=== PATIENT | male | born 1960 | race Two or more races ===

== ENCOUNTER 2022-12-21 17:19 | Inpatient (IN) | payer OTHER, MEDICARE, MEDICAID ==
[~2022-12-21] VITALS: Ht 177.8 cm; Wt 53.6 kg
[2022-12-21] MEDS ORDERED: SODIUM CHLORIDE 0.9% 1,000 ML IV ONE (18:30)
[2022-12-21 18:49] LABS: Basophils # (auto) 0 10 ^3/uL (0-0.2); Eosinophils # (auto) 0 10 ^3/uL (0-0.8); Red Cell Distribution Width 15.4 % (11.8-14.3)
[2022-12-21 18:51] LABS: Basophils % (auto) 0.3 % (0.0-2.0); Eosinophils % (auto) 0.1 % (0.0-7.0); Hemoglobin 19.2 g/dL (13.5-17.5); Lymphocytes # (auto) 2.5 10 ^3/uL (0.4-5.4); Lymphocytes % (auto) 20.4 % (10.0-50.0); Mean Corpuscular Hemoglobin 28.7 pg (28.0-32.0); Mean Corpuscular Hgb Conc. 31.5 g/dL (32.0-36.0); Mean Corpuscular Volume 91.2 fL (80.0-100.0); Neutrophils # (auto) 8.7 10 ^3/uL (1.6-8.6); Neutrophils % (auto) 71.2 % (37.0-80.0); Nucleated Red Blood Cells % 0.1 %; White Blood Cell 12.2 10^3/uL (4.4-10.8)
[2022-12-21 18:53] LABS: Albumin 3.2 g/dL (3.4-5.0); Magnesium 3.2 mg/dL (1.6-2.6); Potassium 4.7 mmol/L (3.5-5.1)
[2022-12-21 18:55] LABS: BUN/Creatinine Ratio 25.7
[2022-12-21 18:57] LABS: Hematocrit 61.1 % (41.0-53.0)
[2022-12-21 19:00] LABS: Lactic Acid w/Reflex 2.2 mmol/L (0.4-2.0)
[2022-12-21 19:02] LABS: Total Protein 7.6 g/dL (6.4-8.2)
[2022-12-21 21:27] LABS: Basophils # (auto) 0 10 ^3/uL (0-0.2); Basophils % (auto) 0.3 % (0.0-2.0); Eosinophils # (auto) 0 10 ^3/uL (0-0.8); Eosinophils % (auto) 0.1 % (0.0-7.0); Lymphocytes # (auto) 1.7 10 ^3/uL (0.4-5.4); Mean Corpuscular Volume 93.7 fL (80.0-100.0); Neutrophils # (auto) 8.1 10 ^3/uL (1.6-8.6)
[2022-12-21 21:29] LABS: Hematocrit 54.2 % (41.0-53.0); Lymphocytes % (auto) 15.7 % (10.0-50.0); Mean Corpuscular Hemoglobin 29.4 pg (28.0-32.0); Mean Corpuscular Hgb Conc. 31.3 g/dL (32.0-36.0); Monocytes # (auto) 0.7 10 ^3/uL (0-1.3); Monocytes % (auto) 6.9 % (0.0-12.0); Nucleated Red Blood Cells % 0.3 %; Red Blood Cells 5.78 10^6/uL (4.5-5.90); Red Cell Distribution Width 15.3 % (11.8-14.3); White Blood Cell 10.5 10^3/uL (4.4-10.8)
[2022-12-21] MEDS ORDERED: ACETAMINOPHEN 325 MG TAB PO PRN (21:45)
[2022-12-21] MEDS ORDERED: ONDANSETRON HCL 4 MG/2 ML VIAL IV PRN (21:45)
[2022-12-21 22:08] LABS: Potassium 4.3 mmol/L (3.5-5.1)
[2022-12-21 22:09] LABS: Albumin 2.7 g/dL (3.4-5.0); BUN/Creatinine Ratio 25.5; Bilirubin, Total 0.8 mg/dL (0.2-1.0); Calcium 9.2 mg/dL (8.5-10.1); Total Protein 7.2 g/dL (6.4-8.2)
[2022-12-21] MEDS ORDERED: D5W/SOD CHL 0.45% 1,000 ML IV SCH (22:30)
[2022-12-21] MEDS ORDERED: LACTATED RINGER'S 1,000 ML IV ONE (22:30)
[2022-12-22 00:55] LABS: Urine Bacteria NONE SEEN /hpf (None Seen); Urine Blood TRACE /uL (Negative); Urine Hyaline Cast FEW /lpf (0 - 2); Urine Mucus FEW (None Seen); Urine Specific Gravity 1.028 (1.001-1.035); Urine WBC 2 /hpf (0 - 3)
[2022-12-22] MEDS ORDERED: SOD CHL 0.45% 1,000 ML IV SCH (01:45)
[2022-12-22 08:06] LABS: Calcium 8.8 mg/dL (8.5-10.1); Potassium 4.6 mmol/L (3.5-5.1)
[2022-12-22] MEDS: ENOXAPARIN SOD 30 MG/0.3 ML SYRINGE SC SCH (10:34)
[2022-12-22] MEDS ORDERED: D5W 5% 1,000 ML IV SCH (15:30)
[2022-12-22] MEDS: D5W 5% 1,000 ML IV SCH (22:45)
[2022-12-22] MEDS ORDERED: DEXTROSE (50%) 50ML SYRG IV PRN (23:00)
[2022-12-23 00:01] LABS: Lactic Acid w/Reflex 2.3 mmol/L (0.4-2.0)
[2022-12-23] MEDS: ACCU-CHEK COMFORT CURVE STRIP VI SCH ×4 (00:30→18:26)
[2022-12-23] MEDS: InsuLIN REG 1unit/0.01ml Soln (100units/ml) SC SCH ×5 (06:00→21:20)
[2022-12-23 06:13] LABS: Basophils # (auto) 0 10 ^3/uL (0-0.2); Basophils % (auto) 0.4 % (0.0-2.0); Eosinophils # (auto) 0.1 10 ^3/uL (0-0.8); Eosinophils % (auto) 1.6 % (0.0-7.0); Hematocrit 47.8 % (41.0-53.0); Hemoglobin 15.5 g/dL (13.5-17.5); Lymphocytes # (auto) 2.2 10 ^3/uL (0.4-5.4); Lymphocytes % (auto) 27.8 % (10.0-50.0); Mean Corpuscular Hemoglobin 29.4 pg (28.0-32.0); Mean Corpuscular Hgb Conc. 32.3 g/dL (32.0-36.0); Mean Corpuscular Volume 91.1 fL (80.0-100.0); Monocytes # (auto) 0.4 10 ^3/uL (0-1.3); Neutrophils # (auto) 5.1 10 ^3/uL (1.6-8.6); Neutrophils % (auto) 65.2 % (37.0-80.0); Nucleated Red Blood Cells % 0.2 %; Red Blood Cells 5.25 10^6/uL (4.5-5.90); Red Cell Distribution Width 14.9 % (11.8-14.3); White Blood Cell 7.9 10^3/uL (4.4-10.8)
[2022-12-23 06:34] LABS: Albumin 2.4 g/dL (3.4-5.0); Calcium 8.3 mg/dL (8.5-10.1); Magnesium 2.6 mg/dL (1.6-2.6); Potassium 3.6 mmol/L (3.5-5.1)
[2022-12-23 06:39] LABS: BUN/Creatinine Ratio 28.3
[2022-12-23 06:47] LABS: Lactic Acid w/Reflex 2.4 mmol/L (0.4-2.0)
[2022-12-23] MEDS: ENOXAPARIN SOD 30 MG/0.3 ML SYRINGE SC SCH (10:36)
[2022-12-23] MEDS: D5W 5% 1,000 ML IV SCH (18:28)
[2022-12-23 22:00] VITALS: BP 130/79
[2022-12-24] MEDS: D5W 5% 1,000 ML IV SCH ×2 (03:21→17:39)
[2022-12-24 05:00] VITALS: BP 109/66
[2022-12-24 05:57] LABS: Potassium 3.4 mmol/L (3.5-5.1)
[2022-12-24] MEDS: ACCU-CHEK COMFORT CURVE STRIP VI SCH ×5 (06:00→23:28)
[2022-12-24] MEDS: InsuLIN REG 1unit/0.01ml Soln (100units/ml) SC SCH ×5 (06:00→23:28)
[2022-12-24 06:03] LABS: BUN/Creatinine Ratio 26.7; Calcium 8.4 mg/dL (8.5-10.1)
[2022-12-24] MEDS: ENOXAPARIN SOD 30 MG/0.3 ML SYRINGE SC SCH (09:43)
[2022-12-24 13:00] VITALS: BP 107/67
[2022-12-24] MEDS: POTASSIUM CHL 20MEQ/100ML 100 ML IV SCH ×3 (13:05→16:07)
[2022-12-24 17:00] VITALS: BP 131/87
[2022-12-24] MEDS ORDERED: POTASSIUM CHL 20MEQ/100ML 100 ML IV SCH (19:15)
[2022-12-24 21:53] VITALS: BP 132/75
[2022-12-25 05:00] VITALS: BP 148/96
[2022-12-25] MEDS: InsuLIN REG 1unit/0.01ml Soln (100units/ml) SC SCH ×3 (06:00→17:40)
[2022-12-25] MEDS: ACCU-CHEK COMFORT CURVE STRIP VI SCH ×3 (06:24→17:40)
[2022-12-25 06:45] LABS: BUN/Creatinine Ratio 26.6; Calcium 8.8 mg/dL (8.5-10.1); Potassium 4.2 mmol/L (3.5-5.1)
[2022-12-25] MEDS: D5W 5% 1,000 ML IV SCH ×3 (07:50→22:15)
[2022-12-25 09:00] VITALS: BP 123/76
[2022-12-25] MEDS: ENOXAPARIN SOD 30 MG/0.3 ML SYRINGE SC SCH (10:32)
[2022-12-25 13:00] VITALS: BP 102/65
[2022-12-25 17:00] VITALS: BP 125/76
[2022-12-25 22:00] VITALS: BP 131/77
[2022-12-26 05:00] VITALS: BP 118/75
[2022-12-26] MEDS: InsuLIN REG 1unit/0.01ml Soln (100units/ml) SC SCH ×5 (06:00→23:21)
[2022-12-26] MEDS: ACCU-CHEK COMFORT CURVE STRIP VI SCH ×5 (06:11→23:21)
[2022-12-26 06:45] LABS: Calcium 8.6 mg/dL (8.5-10.1); Potassium 3.8 mmol/L (3.5-5.1)
[2022-12-26 06:48] LABS: BUN/Creatinine Ratio 21.2
[2022-12-26 09:00] VITALS: BP 106/78
[2022-12-26] MEDS: ENOXAPARIN SOD 30 MG/0.3 ML SYRINGE SC SCH (10:04)
[2022-12-26] MEDS: D5W 5% 1,000 ML IV SCH ×2 (12:48→23:14)
[2022-12-26 13:00] VITALS: BP 99/60
[2022-12-26 17:00] VITALS: BP 117/75
[2022-12-26 22:29] VITALS: BP 136/84
[2022-12-27 05:32] VITALS: BP 116/84
[2022-12-27 06:26] LABS: Calcium 8.2 mg/dL (8.5-10.1); Potassium 3.5 mmol/L (3.5-5.1)
[2022-12-27] MEDS: ACCU-CHEK COMFORT CURVE STRIP VI SCH ×3 (06:28→18:00)
[2022-12-27 06:30] LABS: BUN/Creatinine Ratio 18.2
[2022-12-27] MEDS: InsuLIN REG 1unit/0.01ml Soln (100units/ml) SC SCH ×3 (06:39→18:00)
[2022-12-27 08:00] VITALS: BP 127/73
[2022-12-27] MEDS: ENOXAPARIN SOD 30 MG/0.3 ML SYRINGE SC SCH (10:39)
[2022-12-27 12:00] VITALS: BP 139/78
[2022-12-27 16:00] VITALS: BP 130/79
[2022-12-27] MEDS: D5W 5% 1,000 ML IV SCH (18:00)
[2022-12-27 22:00] VITALS: BP 124/73
[2022-12-28 05:00] VITALS: BP 111/71
[2022-12-28] MEDS: D5W 5% 1,000 ML IV SCH ×2 (05:17→21:45)
[2022-12-28] MEDS: ACCU-CHEK COMFORT CURVE STRIP VI SCH ×5 (05:54→23:55)
[2022-12-28] MEDS: InsuLIN REG 1unit/0.01ml Soln (100units/ml) SC SCH ×5 (05:55→23:55)
[2022-12-28 08:40] VITALS: BP 101/45
[2022-12-28] MEDS: ENOXAPARIN SOD 30 MG/0.3 ML SYRINGE SC SCH (09:57)
[2022-12-28 12:30] VITALS: BP 117/69
[2022-12-28 16:25] VITALS: BP 109/73
[2022-12-28 20:00] VITALS: BP 114/65
[2022-12-29] MEDS: ACCU-CHEK COMFORT CURVE STRIP VI SCH ×3 (05:47→18:55)
[2022-12-29] MEDS: InsuLIN REG 1unit/0.01ml Soln (100units/ml) SC SCH ×3 (05:51→18:55)
[2022-12-29 08:35] VITALS: BP 100/77
[2022-12-29] MEDS: ENOXAPARIN SOD 30 MG/0.3 ML SYRINGE SC SCH (10:00)
[2022-12-29 12:30] VITALS: BP 131/82
[2022-12-29] MEDS: D5W 5% 1,000 ML IV SCH (13:54)
[2022-12-29 16:30] VITALS: BP 129/77
[2022-12-29 16:34] LABS: Folate (Folic Acid) 1.73 ng/mL (5.38-24)
[2022-12-29] MEDS ORDERED: ceFAZolin 1GM/50ML 50 ML IV ONE (21:00)
[2022-12-29 22:00] VITALS: BP 123/63
[2022-12-30] MEDS: ACCU-CHEK COMFORT CURVE STRIP VI SCH ×4 (00:28→18:01)
[2022-12-30] MEDS: D5W 5% 1,000 ML IV SCH ×3 (03:12→22:16)
[2022-12-30 05:00] VITALS: BP 95/59
[2022-12-30] MEDS: InsuLIN REG 1unit/0.01ml Soln (100units/ml) SC SCH ×4 (06:00→18:00)
[2022-12-30 06:27] LABS: Potassium 3.3 mmol/L (3.5-5.1)
[2022-12-30 06:34] LABS: Albumin 2.4 g/dL (3.4-5.0); BUN/Creatinine Ratio 9.5; Bilirubin, Total 1.7 mg/dL (0.2-1.0); Calcium 8.5 mg/dL (8.5-10.1); Total Protein 6.7 g/dL (6.4-8.2)
[2022-12-30 06:35] LABS: Basophils # (auto) 0 10 ^3/uL (0-0.2); Basophils % (auto) 0.2 % (0.0-2.0); Eosinophils # (auto) 0 10 ^3/uL (0-0.8); Eosinophils % (auto) 0.1 % (0.0-7.0); Hematocrit 44.6 % (41.0-53.0); Hemoglobin 15.3 g/dL (13.5-17.5); Lymphocytes # (auto) 1.5 10 ^3/uL (0.4-5.4); Lymphocytes % (auto) 15.6 % (10.0-50.0); Mean Corpuscular Hemoglobin 29.4 pg (28.0-32.0); Mean Corpuscular Hgb Conc. 34.4 g/dL (32.0-36.0); Mean Corpuscular Volume 85.3 fL (80.0-100.0); Monocytes # (auto) 0.6 10 ^3/uL (0-1.3); Monocytes % (auto) 5.8 % (0.0-12.0); Neutrophils # (auto) 7.5 10 ^3/uL (1.6-8.6); Neutrophils % (auto) 78.3 % (37.0-80.0); Nucleated Red Blood Cells % 0.3 %; Red Blood Cells 5.22 10^6/uL (4.5-5.90); White Blood Cell 9.6 10^3/uL (4.4-10.8)
[2022-12-30 06:36] LABS: INR 1.1 (0.9-1.15); Partial Thromboplastin Time 38.9 sec (24.6-33.4)
[2022-12-30 09:00] VITALS: BP 109/56
[2022-12-30] MEDS: ENOXAPARIN SOD 30 MG/0.3 ML SYRINGE SC SCH (10:00)
[2022-12-30 13:00] VITALS: BP 109/54
[2022-12-30] MEDS: POTASSIUM CHL 20MEQ/100ML 100 ML IV SCH ×2 (13:36→17:57)
[2022-12-30] MEDS ORDERED: ONDANSETRON HCL 4 MG/2 ML VIAL IV PRN (16:00)
[2022-12-30 17:00] VITALS: BP 85/54
[2022-12-30] MEDS ORDERED: MORPHINE SULFATE INJ 2 MG/ml SYRG IV ONE (17:30)
[2022-12-30 20:00] VITALS: BP 107/69
[2022-12-30 22:00] VITALS: BP 107/69
[2022-12-31] MEDS: ACCU-CHEK COMFORT CURVE STRIP VI SCH ×4 (00:35→18:23)
[2022-12-31 05:00] VITALS: BP 124/70
[2022-12-31] MEDS: ENSURE CLEAR Apple 8oz Carton PO SCH ×3 (06:00→18:32)
[2022-12-31] MEDS: InsuLIN REG 1unit/0.01ml Soln (100units/ml) SC SCH ×4 (06:58→18:24)
[2022-12-31 08:00] VITALS: BP 116/58
[2022-12-31 08:52] VITALS: BP 116/58
[2022-12-31] MEDS: ENOXAPARIN SOD 30 MG/0.3 ML SYRINGE SC SCH (09:49)
[2022-12-31] MEDS: FOLIC ACID 1 MG in D5W 5% 50 ML INJ SCH (11:31)
[2022-12-31 13:00] VITALS: BP 124/67
[2022-12-31 16:51] VITALS: BP 128/62
[2022-12-31] MEDS: Ensure Enlive Strawberry 8oz Bottle PO SCH ×2 (18:00→21:57)
[2022-12-31] MEDS: D5W 5% 1,000 ML IV SCH (21:15)
[2022-12-31 22:00] VITALS: BP 109/54
[2023-01-01] MEDS: ACCU-CHEK COMFORT CURVE STRIP VI SCH ×4 (01:14→17:40)
[2023-01-01] MEDS: ENSURE CLEAR Apple 8oz Carton PO SCH ×3 (01:14→13:05)
[2023-01-01] MEDS: D5W 5% 1,000 ML IV SCH (04:08)
[2023-01-01 05:00] VITALS: BP 116/66
[2023-01-01] MEDS: InsuLIN REG 1unit/0.01ml Soln (100units/ml) SC SCH ×4 (05:23→17:40)
[2023-01-01] MEDS: Ensure Enlive Strawberry 8oz Bottle PO SCH (05:24)
[2023-01-01 08:05] VITALS: BP 94/40
[2023-01-01 09:00] VITALS: BP 103/67
[2023-01-01] MEDS: ENOXAPARIN SOD 30 MG/0.3 ML SYRINGE SC SCH (10:41)
[2023-01-01] MEDS: FOLIC ACID 1 MG in D5W 5% 50 ML INJ SCH (10:58)
[2023-01-01 13:00] VITALS: BP 96/40
[2023-01-01] MEDS: SODIUM CHLORIDE 0.9% 1,000 ML IV SCH ×2 (13:03→21:55)
[2023-01-01 16:55] VITALS: BP 94/57
[2023-01-01] MEDS: ENSURE CLEAR Apple 8oz Carton GT SCH (18:20)
[2023-01-01 22:00] VITALS: BP 120/64
[2023-01-02] MEDS: ACCU-CHEK COMFORT CURVE STRIP VI SCH ×3 (00:17→10:54)
[2023-01-02] MEDS: ENSURE CLEAR Apple 8oz Carton GT SCH ×3 (00:19→12:56)
[2023-01-02 05:00] VITALS: BP 109/62
[2023-01-02] MEDS: SODIUM CHLORIDE 0.9% 1,000 ML IV SCH ×2 (05:35→12:25)
[2023-01-02] MEDS: InsuLIN REG 1unit/0.01ml Soln (100units/ml) SC SCH ×3 (05:36→10:54)
[2023-01-02 09:00] VITALS: BP 106/63
[2023-01-02] MEDS: ENOXAPARIN SOD 30 MG/0.3 ML SYRINGE SC SCH (10:00)
[2023-01-02] MEDS: FOLIC ACID 1 MG in D5W 5% 50 ML INJ SCH (10:54)
[2023-01-02 13:00] VITALS: BP 104/63
== END 2023-01-02 17:27 | disposition hospice, home (50) | DRG 682 ==
LOC: EDBD 17:19 → ER 17:19 → OVERFLOW 21:33 → WEST WING 12-23 17:50 → TELE-WESTW 12-23 18:26
PROVIDERS: ADMIT Nurse Practitioner; ATTEND Family Medicine
PROC: 0DH63UZ Insertion of Feeding Device into Stomach, Percutaneous Approach (ICD-10-PCS; principal; 2022-12-30 15:21)
DX: N17.9 Acute kidney failure, unspecified (principal); E43 Unspecified severe protein-calorie malnutrition; G93.41 Metabolic encephalopathy; E87.0 Hyperosmolality and hypernatremia; E87.20 Acidosis, unspecified; E87.1 Hypo-osmolality and hyponatremia; Z68.1 Body mass index [BMI] 19.9 or less, adult; E86.0 Dehydration; K29.90 Gastroduodenitis, unspecified, without bleeding; E78.5 Hyperlipidemia, unspecified; R62.7 Adult failure to thrive; Z51.5 Encounter for palliative care; E87.6 Hypokalemia; E53.8 Deficiency of other specified B group vitamins; K44.9 Diaphragmatic hernia without obstruction or gangrene; R13.10 Dysphagia, unspecified; E11.9 Type 2 diabetes mellitus without complications; G20 Parkinson's disease; F02.C0 Dementia in other diseases classified elsewhere, severe, without behavioral disturbance, psychotic disturbance, mood disturbance, and anxiety; I25.10 Atherosclerotic heart disease of native coronary artery without angina pectoris; I25.2 Old myocardial infarction; Z95.5 Presence of coronary angioplasty implant and graft; Z93.1 Gastrostomy status
CPT/HCPCS: 36415; 70450; 71045; 80048; 80053; 81001; 82607; 82746; 82962; 83036; 83605; 83735; 84295; 84443; 84484; 85025; 85610; 85730; 87426; 92507; 92610; 93005; 95819; 96360; G0378; J0690; J1815; J3480; J7060

== ENCOUNTER 2023-02-15 18:16 | Inpatient (IN) | payer OTHER, MEDICARE, MEDICAID ==
[~2023-02-15] VITALS: Ht 162.6 cm; Wt 50.5 kg
[2023-02-15 19:17] LABS: Basophils # (auto) 0 10 ^3/uL (0-0.2); Basophils % (auto) 0.4 % (0.0-2.0); Eosinophils # (auto) 0 10 ^3/uL (0-0.8); Eosinophils % (auto) 0.5 % (0.0-7.0); Hematocrit 43.3 % (41.0-53.0); Hemoglobin 14.2 g/dL (13.5-17.5); Lymphocytes # (auto) 2.8 10 ^3/uL (0.4-5.4); Lymphocytes % (auto) 29.3 % (10.0-50.0); Mean Corpuscular Hemoglobin 28.6 pg (28.0-32.0); Mean Corpuscular Hgb Conc. 32.8 g/dL (32.0-36.0); Mean Corpuscular Volume 86.9 fL (80.0-100.0); Monocytes # (auto) 0.5 10 ^3/uL (0-1.3); Neutrophils # (auto) 6.1 10 ^3/uL (1.6-8.6); Neutrophils % (auto) 64.8 % (37.0-80.0); Nucleated Red Blood Cells % 0.2 %; Red Blood Cells 4.97 10^6/uL (4.5-5.90); Red Cell Distribution Width 15.5 % (11.8-14.3); White Blood Cell 9.4 10^3/uL (4.4-10.8)
[2023-02-15 19:37] LABS: Albumin 2.9 g/dL (3.4-5.0); BUN/Creatinine Ratio 41.9 (10.0-20.0); Calcium 8.9 mg/dL (8.5-10.1); Potassium 4.3 mmol/L (3.5-5.1)
[2023-02-15 19:40] LABS: Bilirubin, Total 0.6 mg/dL (0.2-1.0); Total Protein 7.1 g/dL (6.4-8.2)
[2023-02-15 22:27] LABS: Urine Bacteria MANY /hpf (None Seen); Urine Blood 2+ /uL (Negative); Urine Mucus FEW (None Seen); Urine Specific Gravity 1.019 (1.001-1.035); Urine WBC 76 /hpf (0 - 3); Urine WBC Clumps PRESENT /hpf (None Seen)
[2023-02-16] MEDS ORDERED: cefTRIAXone 1GM/50ML D5W 50 ML IV ONE (05:15)
[2023-02-16] MEDS ORDERED: HYDROmorphone HCL 2 MG/ML VL/or syr IV ONE (05:30)
[2023-02-16] MEDS ORDERED: ONDANSETRON HCL 4 MG/2 ML VIAL IV ONE (05:30)
[2023-02-16] MEDS ORDERED: SODIUM CHLORIDE 0.9% 500 ML IV ONE (05:30)
[2023-02-16] MEDS ORDERED: ONDANSETRON HCL 4 MG/2 ML VIAL IV PRN (06:15)
[2023-02-16] MEDS ORDERED: HYDROcodone-ACET 5/325MG TAB PEG PRN (13:15)
[2023-02-16] MEDS: ENOXAPARIN SOD 40 MG/0.4 ML SYRINGE SC SCH (15:51)
[2023-02-16] MEDS: PANTOPRAZOLE 40 MG/10 ML VIAL INJ IV SCH (15:51)
[2023-02-16] MEDS: cefTRIAXone 1GM/50ML D5W 50 ML IV SCH (15:52)
[2023-02-16 16:34] VITALS: BP 120/75
[2023-02-16 17:00] VITALS: BP 120/75
[2023-02-16 22:00] VITALS: BP 125/77
[2023-02-17 05:00] VITALS: BP 103/70
[2023-02-17 05:53] LABS: Basophils # (auto) 0 10 ^3/uL (0-0.2); Basophils % (auto) 0.6 % (0.0-2.0); Eosinophils # (auto) 0.1 10 ^3/uL (0-0.8); Hematocrit 37.1 % (41.0-53.0); Hemoglobin 12.1 g/dL (13.5-17.5); Lymphocytes # (auto) 2.7 10 ^3/uL (0.4-5.4); Lymphocytes % (auto) 31.7 % (10.0-50.0); Mean Corpuscular Hemoglobin 28.4 pg (28.0-32.0); Mean Corpuscular Hgb Conc. 32.6 g/dL (32.0-36.0); Mean Corpuscular Volume 87.2 fL (80.0-100.0); Monocytes # (auto) 0.5 10 ^3/uL (0-1.3); Monocytes % (auto) 6.4 % (0.0-12.0); Neutrophils # (auto) 5.1 10 ^3/uL (1.6-8.6); Neutrophils % (auto) 60.3 % (37.0-80.0); Nucleated Red Blood Cells % 0.4 %; Red Blood Cells 4.26 10^6/uL (4.5-5.90); Red Cell Distribution Width 15.8 % (11.8-14.3); White Blood Cell 8.5 10^3/uL (4.4-10.8)
[2023-02-17 06:12] LABS: Calcium 8.8 mg/dL (8.5-10.1)
[2023-02-17 06:15] LABS: BUN/Creatinine Ratio 43.9 (10.0-20.0)
[2023-02-17] MEDS: PANTOPRAZOLE 40 MG/10 ML VIAL INJ IV SCH (08:34)
[2023-02-17] MEDS: cefTRIAXone 1GM/50ML D5W 50 ML IV SCH (08:34)
[2023-02-17] MEDS: ENOXAPARIN SOD 40 MG/0.4 ML SYRINGE SC SCH (08:34)
[2023-02-17 09:00] VITALS: BP 90/52
[2023-02-17] MEDS ORDERED: Glucerna 1.2 Cal 1Liter BOTTLE GT SCH (12:30)
[2023-02-17 13:00] VITALS: BP 106/51
[2023-02-17 16:51] VITALS: BP 121/67
[2023-02-17] MEDS: ACETAMINOPHEN 325 MG TAB PO PRN (18:28)
[2023-02-17 22:00] VITALS: BP 130/73
[2023-02-18] MEDS: ACETAMINOPHEN 325 MG TAB PO PRN ×2 (04:46→18:01)
[2023-02-18 05:00] VITALS: BP 133/64
[2023-02-18] MEDS: PANTOPRAZOLE 40 MG/10 ML VIAL INJ IV SCH (08:47)
[2023-02-18] MEDS: ENOXAPARIN SOD 40 MG/0.4 ML SYRINGE SC SCH (08:47)
[2023-02-18] MEDS: cefTRIAXone 1GM/50ML D5W 50 ML IV SCH (08:47)
[2023-02-18 09:00] VITALS: BP 96/53
[2023-02-18 12:48] VITALS: BP 98/49
[2023-02-18 17:00] VITALS: BP 102/50
[2023-02-18 22:00] VITALS: BP 106/67
[2023-02-19] MEDS: ACETAMINOPHEN 325 MG TAB PO PRN (00:45)
[2023-02-19 05:00] VITALS: BP 106/75
[2023-02-19 08:41] VITALS: BP 107/75
[2023-02-19 12:56] VITALS: BP 120/69
[2023-02-19 17:00] VITALS: BP 104/47
[2023-02-19] MEDS: cefTRIAXone 1GM/50ML D5W 50 ML IV SCH (18:28)
[2023-02-19] MEDS: PANTOPRAZOLE 40 MG/10 ML VIAL INJ IV SCH (18:28)
[2023-02-19] MEDS: ENOXAPARIN SOD 40 MG/0.4 ML SYRINGE SC SCH (18:28)
[2023-02-19 22:00] VITALS: BP 127/64
[2023-02-20] VITALS: BP 104/64
[2023-02-20 05:00] VITALS: BP 100/70
[2023-02-20 09:04] VITALS: BP 123/51
[2023-02-20 12:30] VITALS: BP 106/67
[2023-02-20] MEDS: ENOXAPARIN SOD 40 MG/0.4 ML SYRINGE SC SCH (12:32)
[2023-02-20] MEDS: cefTRIAXone 1GM/50ML D5W 50 ML IV SCH (12:32)
[2023-02-20] MEDS: PANTOPRAZOLE 40 MG/10 ML VIAL INJ IV SCH (12:32)
[2023-02-20 16:25] VITALS: BP 71/46
== END 2023-02-20 18:42 | disposition home health service (06) | DRG 689 ==
LOC: ER 18:16 → OVERFLOW 02-16 06:20 → WEST WING 02-16 16:35
PROVIDERS: ADMIT Nurse Practitioner; ATTEND Family Medicine
PROC: 05HB33Z Insertion of Infusion Device into Right Basilic Vein, Percutaneous Approach (ICD-10-PCS; principal; 2023-02-20)
PROC: B54MZZA Ultrasonography of Right Upper Extremity Veins, Guidance (ICD-10-PCS; 2023-02-20)
DX: N10 Acute pyelonephritis (principal); E43 Unspecified severe protein-calorie malnutrition; Z68.1 Body mass index [BMI] 19.9 or less, adult; F03.C0 Unspecified dementia, severe, without behavioral disturbance, psychotic disturbance, mood disturbance, and anxiety; E78.00 Pure hypercholesterolemia, unspecified; B96.4 Proteus (mirabilis) (morganii) as the cause of diseases classified elsewhere; E86.0 Dehydration; Z20.822 Contact with and (suspected) exposure to COVID-19; Z74.01 Bed confinement status; Z93.1 Gastrostomy status
CPT/HCPCS: 36415; 74176; 76775; 80048; 80053; 81001; 83605; 85025; 87040; 87086; 87088; 87186; 87426; 93005; 96361; 96374; 96375; C9113; G0378; J0696; J2405

== ENCOUNTER 2023-04-16 22:45 | Inpatient (IN) | payer OTHER, MEDICAID ==
[~2023-04-16] VITALS: Ht 152.4 cm; Wt 41.0 kg
[2023-04-16] MEDS ORDERED: KETAMINE HCL 10 ML ONE (22:56)
[2023-04-16] MEDS ORDERED: ROCURONIUM 10MG/ML 10ML VIAL IV ONE ×2 (22:56→23:15)
[2023-04-16 23:05] VITALS: BP 86/57
[2023-04-16] MEDS ORDERED: KETAMINE 50mg/ML 10ml Vial (500mg/10ml) IV ONE (23:15)
[2023-04-16] MEDS ORDERED: SODIUM CHLORIDE 0.9% 1,550 ML IV ONE (23:15)
[2023-04-16 23:23] LABS: Basophils # (auto) 0 10 ^3/uL (0-0.2); Basophils % (auto) 0.3 % (0.0-2.0); Eosinophils # (auto) 0 10 ^3/uL (0-0.8); Hematocrit 44.4 % (41.0-53.0); Lymphocytes # (auto) 2.1 10 ^3/uL (0.4-5.4); Lymphocytes % (auto) 13.7 % (10.0-50.0); Mean Corpuscular Hemoglobin 27.5 pg (28.0-32.0); Mean Corpuscular Hgb Conc. 31.4 g/dL (32.0-36.0); Mean Corpuscular Volume 87.5 fL (80.0-100.0); Monocytes % (auto) 6.4 % (0.0-12.0); Neutrophils # (auto) 12.1 10 ^3/uL (1.6-8.6); Neutrophils % (auto) 79.6 % (37.0-80.0); Nucleated Red Blood Cells % 0.1 %; Red Blood Cells 5.07 10^6/uL (4.5-5.90); Red Cell Distribution Width 16.9 % (11.8-14.3); White Blood Cell 15.2 10^3/uL (4.4-10.8)
[2023-04-16] MEDS: fentaNYL Drip 2500mCg/250mlNS 250 ML IV SCH (23:39)
[2023-04-16 23:44] LABS: Albumin 2.6 g/dL (3.4-5.0); BUN/Creatinine Ratio 43.1 (10.0-20.0); Calcium 9.5 mg/dL (8.5-10.1); Potassium 4.4 mmol/L (3.5-5.1)
[2023-04-16 23:45] LABS: Lactic Acid w/Reflex 2.2 mmol/L (0.4-2.0)
[2023-04-16 23:47] LABS: Bilirubin, Total 0.8 mg/dL (0.2-1.0); Total Protein 7.9 g/dL (6.4-8.2)
[2023-04-17] VITALS (48 sets, daily range): BP systolic 84–150; BP diastolic 4–88
[2023-04-17] MEDS ORDERED: VANCOMYCIN 1GM/250ML 250 ML IV ONE (00:15)
[2023-04-17] MEDS ORDERED: PIPERACILLIN-TAZOB 3.375GM 100 ML IV ONE (00:15)
[2023-04-17] MEDS ORDERED: LACTATED RINGER'S 1,550 ML IV ONE (00:15)
[2023-04-17] MEDS ORDERED: ROCURONIUM 10MG/ML 10ML VIAL IV ONE (04:00)
[2023-04-17 04:38] LABS: Urine Amorphous Crystal FEW /hpf (None Seen); Urine Bacteria FEW /hpf (None Seen); Urine Blood 3+ /uL (Negative); Urine Mucus FEW (None Seen); Urine Specific Gravity 1.017 (1.001-1.035); Urine WBC 2271 /hpf (0 - 3); Urine WBC Clumps PRESENT /hpf (None Seen)
[2023-04-17] MEDS ORDERED: dilTIAZem 25 MG/5 ML VIAL IV ONE (04:45)
[2023-04-17] MEDS ORDERED: ALBUMIN 25% 100 ML IV ONE ×2 (04:45)
[2023-04-17] MEDS ORDERED: MORPHINE SULFATE INJ 2 MG/ml SYRG IV PRN (07:30)
[2023-04-17] MEDS: fentaNYL Drip 2500mCg/250mlNS 250 ML IV SCH ×2 (07:30→23:34)
[2023-04-17] MEDS ORDERED: NITROGLYCERIN 0.4 MG SL TAB SL PRN (07:30)
[2023-04-17] MEDS ORDERED: ONDANSETRON HCL 4 MG/2 ML VIAL IV PRN (07:30)
[2023-04-17] MEDS ORDERED: SODIUM CHLORIDE 0.9% 1,000 ML IV SCH (07:30)
[2023-04-17] MEDS ORDERED: ACETAMINOPHEN 325 MG TAB PO PRN (07:30)
[2023-04-17] MEDS ORDERED: ACETAMINOPHEN 650 MG RECT SUPP PR PRN ×2 (08:45→12:15)
[2023-04-17] MEDS ORDERED: cefTRIAXone 1GM/50ML D5W 50 ML IV SCH (09:00)
[2023-04-17] MEDS: AZITHROMYCIN 500MG/ 250ML 250 ML IV SCH (09:19)
[2023-04-17] MEDS ORDERED: ADENOSINE 6 MG/2 ML INJ IV ONE (09:30)
[2023-04-17] MEDS ORDERED: AMIODARONE HCL 150 MG in D5W 5% 100 ML IV ONE (09:45)
[2023-04-17] MEDS ORDERED: VANCOMYCIN PER PHARMACY 0 MG IV SCH (09:45)
[2023-04-17] MEDS ORDERED: AMIODARONE 450mg/250ml AE 250 ML IV SCH ×2 (10:00→16:00)
[2023-04-17] MEDS ORDERED: NOREPINEPHRINE 8 MG/250ML KIT 250 ML IV ONE (10:13)
[2023-04-17] MEDS: NOREPINEPHRINE 8 MG/250ML KIT 250 ML IV SCH ×2 (10:23→20:16)
[2023-04-17] MEDS: ENOXAPARIN SOD 40 MG/0.4 ML SYRINGE SC SCH (10:33)
[2023-04-17] MEDS ORDERED: MAGNESIUM SULFATE 1GM/100ML 100 ML IV ONE (10:45)
[2023-04-17 11:13] LABS: INR 1.06 (0.9-1.15)
[2023-04-17 11:56] LABS: Hematocrit 41.8 % (41.0-53.0); Hemoglobin 12.7 g/dL (13.5-17.5); Mean Corpuscular Hemoglobin 28.2 pg (28.0-32.0); Mean Corpuscular Hgb Conc. 30.3 g/dL (32.0-36.0); Mean Corpuscular Volume 92.8 fL (80.0-100.0); Red Cell Distribution Width 17.6 % (11.8-14.3)
[2023-04-17 12:02] LABS: Basophils % (manual) 0 (0.0-2.0); Blast Cells 0; Myelocytes % 0; Promyelocytes % 0; Reactive Lymphocytes 0
[2023-04-17] MEDS ORDERED: MIDAZOLAM DRIP 50 mg/50mL 50 ML IV ONE (12:23)
[2023-04-17] MEDS: ACETAMINOPHEN 650 MG RECT SUPP PR PRN (12:32)
[2023-04-17] MEDS: MIDAZOLAM DRIP 50 mg/50mL 50 ML IV SCH ×3 (12:39→23:33)
[2023-04-17] MEDS: KETOROLAC TROMETH 30 MG/ML 1ML VIAL IV PRN (12:50)
[2023-04-17 13:13] LABS: Band Neutrophils % (manual) 24; Eosinophils % (manual) 1 (0-7); Lymphocytes % (manual) 11 (10.0-50.0); Metamyelocytes % 1; Monocytes % (manual) 6 (0-12)
[2023-04-17 14:16] LABS: Calcium 8.2 mg/dL (8.5-10.1); Potassium 4.7 mmol/L (3.5-5.1)
[2023-04-17 14:20] LABS: BUN/Creatinine Ratio 37.8 (10.0-20.0)
[2023-04-17] MEDS: VANCOMYCIN 750mg/250ml 250 ML IV SCH (15:00)
[2023-04-17] MEDS: CEFEPIME 1GM/ 50ML 50 ML IV SCH ×2 (17:37→23:45)
[2023-04-17] MEDS: SODIUM CHLORIDE 0.9% 1,000 ML IV SCH ×2 (18:16→23:51)
[2023-04-17 23:36] LABS: Folate (Folic Acid) 14.28 ng/mL (5.38-24)
[2023-04-18] VITALS (105 sets, daily range): BP systolic 85–110; BP diastolic 51–73
[2023-04-18 04:42] LABS: Albumin 2.1 g/dL (3.4-5.0); Calcium 8.5 mg/dL (8.5-10.1); Potassium 4.1 mmol/L (3.5-5.1)
[2023-04-18 04:47] LABS: Total Protein 5.7 g/dL (6.4-8.2)
[2023-04-18 04:51] LABS: Hematocrit 31.2 % (41.0-53.0); Hemoglobin 10.1 g/dL (13.5-17.5); Mean Corpuscular Hemoglobin 27.4 pg (28.0-32.0); Mean Corpuscular Hgb Conc. 32.4 g/dL (32.0-36.0); Mean Corpuscular Volume 84.7 fL (80.0-100.0); Red Blood Cells 3.68 10^6/uL (4.5-5.90); Red Cell Distribution Width 17.1 % (11.8-14.3); White Blood Cell 14.1 10^3/uL (4.4-10.8)
[2023-04-18 04:57] LABS: Basophils % (manual) 0 (0.0-2.0); Blast Cells 0; Eosinophils % (manual) 0 (0-7); Metamyelocytes % 0; Myelocytes % 0; Promyelocytes % 0; Reactive Lymphocytes 0
[2023-04-18] MEDS: NOREPINEPHRINE 8 MG/250ML KIT 250 ML IV SCH ×2 (06:01→14:38)
[2023-04-18] MEDS: MIDAZOLAM DRIP 50 mg/50mL 50 ML IV SCH ×3 (06:01→23:34)
[2023-04-18 07:31] LABS: Band Neutrophils % (manual) 19; Lymphocytes % (manual) 20 (10.0-50.0); Monocytes % (manual) 9 (0-12)
[2023-04-18] MEDS: CEFEPIME 1GM/ 50ML 50 ML IV SCH ×3 (07:55→21:46)
[2023-04-18] MEDS: KETOROLAC TROMETH 30 MG/ML 1ML VIAL IV PRN (07:56)
[2023-04-18] MEDS: SODIUM CHLORIDE 0.9% 1,000 ML IV SCH (07:57)
[2023-04-18] MEDS: VANCOMYCIN 750mg/250ml 250 ML IV SCH (09:00)
[2023-04-18] MEDS: ENOXAPARIN SOD 40 MG/0.4 ML SYRINGE SC SCH (09:37)
[2023-04-18] MEDS: FOLIC ACID 1 MG in D5W 5% 50 ML INJ SCH (10:00)
[2023-04-18] MEDS: AZITHROMYCIN 500MG/ 250ML 250 ML IV SCH (10:36)
[2023-04-18] MEDS: fentaNYL Drip 2500mCg/250mlNS 250 ML IV SCH (11:04)
[2023-04-18] MEDS ORDERED: DEXTROSE (50%) 50ML SYRG IV PRN (12:00)
[2023-04-18] MEDS: InsuLIN REG 1unit/0.01ml Soln (100units/ml) SC SCH ×2 (17:00→21:49)
[2023-04-18] MEDS: ACCU-CHEK COMFORT CURVE STRIP VI SCH ×2 (17:05→21:46)
[2023-04-19] VITALS (102 sets, daily range): BP systolic 84–139; BP diastolic 51–76
[2023-04-19] MEDS: NOREPINEPHRINE 8 MG/250ML KIT 250 ML IV SCH ×2 (01:32→13:55)
[2023-04-19] MEDS: VANCOMYCIN 750mg/250ml 250 ML IV SCH (03:30)
[2023-04-19 04:10] LABS: Basophils # (auto) 0 10 ^3/uL (0-0.2); Basophils % (auto) 0.1 % (0.0-2.0); Eosinophils # (auto) 0 10 ^3/uL (0-0.8); Eosinophils % (auto) 0.3 % (0.0-7.0); Hematocrit 30.2 % (41.0-53.0); Hemoglobin 9.8 g/dL (13.5-17.5); Lymphocytes # (auto) 1.1 10 ^3/uL (0.4-5.4); Lymphocytes % (auto) 8.8 % (10.0-50.0); Mean Corpuscular Hemoglobin 27.9 pg (28.0-32.0); Mean Corpuscular Hgb Conc. 32.6 g/dL (32.0-36.0); Mean Corpuscular Volume 85.7 fL (80.0-100.0); Monocytes # (auto) 0.5 10 ^3/uL (0-1.3); Monocytes % (auto) 3.8 % (0.0-12.0); Neutrophils # (auto) 10.8 10 ^3/uL (1.6-8.6); Red Blood Cells 3.52 10^6/uL (4.5-5.90); Red Cell Distribution Width 16.9 % (11.8-14.3); White Blood Cell 12.4 10^3/uL (4.4-10.8)
[2023-04-19 04:21] LABS: BUN/Creatinine Ratio 46.7 (10.0-20.0); Calcium 8.4 mg/dL (8.5-10.1); Potassium 3.8 mmol/L (3.5-5.1)
[2023-04-19] MEDS: CEFEPIME 1GM/ 50ML 50 ML IV SCH ×3 (05:55→22:48)
[2023-04-19] MEDS: ACCU-CHEK COMFORT CURVE STRIP VI SCH ×4 (06:05→22:47)
[2023-04-19] MEDS: InsuLIN REG 1unit/0.01ml Soln (100units/ml) SC SCH ×4 (07:00→22:00)
[2023-04-19] MEDS ORDERED: AMIODARONE 450mg/250ml AE 250 ML IV ONE (08:24)
[2023-04-19] MEDS ORDERED: AMIODARONE HCL 150 MG in D5W 5% 100 ML IV ONE (08:30)
[2023-04-19] MEDS ORDERED: AMIODARONE 450mg/250ml AE 250 ML IV SCH (08:45)
[2023-04-19] MEDS: fentaNYL Drip 2500mCg/250mlNS 250 ML IV SCH (10:18)
[2023-04-19] MEDS: ENOXAPARIN SOD 40 MG/0.4 ML SYRINGE SC SCH (10:19)
[2023-04-19] MEDS: FOLIC ACID 1 MG in D5W 5% 50 ML INJ SCH (10:20)
[2023-04-19] MEDS: AZITHROMYCIN 500MG/ 250ML 250 ML IV SCH (11:55)
[2023-04-19] MEDS: Pro-Stat SF 30ml Vanilla GT SCH (12:11)
[2023-04-19] MEDS: ACETAMINOPHEN 650 mg PER 20.3 mL UD GT PRN ×2 (13:08→21:26)
[2023-04-19] MEDS: AMIODARONE 450mg/250ml AE 250 ML IV SCH (14:45)
[2023-04-19] MEDS: MIDAZOLAM DRIP 50 mg/50mL 50 ML IV SCH (19:00)
[2023-04-20] VITALS (103 sets, daily range): BP systolic 42–177; BP diastolic 25–97
[2023-04-20] MEDS: MIDAZOLAM DRIP 50 mg/50mL 50 ML IV SCH ×2 (00:30→10:30)
[2023-04-20 04:23] LABS: Basophils # (auto) 0 10 ^3/uL (0-0.2); Basophils % (auto) 0.2 % (0.0-2.0); Eosinophils # (auto) 0.2 10 ^3/uL (0-0.8); Eosinophils % (auto) 1.6 % (0.0-7.0); Hematocrit 31.3 % (41.0-53.0); Hemoglobin 10.2 g/dL (13.5-17.5); Lymphocytes # (auto) 1.5 10 ^3/uL (0.4-5.4); Lymphocytes % (auto) 15.4 % (10.0-50.0); Mean Corpuscular Hemoglobin 27.8 pg (28.0-32.0); Mean Corpuscular Hgb Conc. 32.6 g/dL (32.0-36.0); Mean Corpuscular Volume 85.4 fL (80.0-100.0); Monocytes # (auto) 0.7 10 ^3/uL (0-1.3); Monocytes % (auto) 6.6 % (0.0-12.0); Neutrophils # (auto) 7.6 10 ^3/uL (1.6-8.6); Neutrophils % (auto) 76.2 % (37.0-80.0); Red Blood Cells 3.66 10^6/uL (4.5-5.90); Red Cell Distribution Width 16.7 % (11.8-14.3); White Blood Cell 9.9 10^3/uL (4.4-10.8)
[2023-04-20] MEDS: ACETAMINOPHEN 650 mg PER 20.3 mL UD GT PRN ×2 (04:36→14:34)
[2023-04-20 04:38] LABS: Calcium 8.3 mg/dL (8.5-10.1); Potassium 3.2 mmol/L (3.5-5.1)
[2023-04-20] MEDS: NOREPINEPHRINE 8 MG/250ML KIT 250 ML IV SCH (04:38)
[2023-04-20 04:40] LABS: BUN/Creatinine Ratio 35.8 (10.0-20.0)
[2023-04-20] MEDS: AMIODARONE 450mg/250ml AE 250 ML IV SCH ×2 (05:45→19:37)
[2023-04-20] MEDS: CEFEPIME 1GM/ 50ML 50 ML IV SCH ×3 (06:34→21:08)
[2023-04-20] MEDS: InsuLIN REG 1unit/0.01ml Soln (100units/ml) SC SCH ×4 (06:42→21:07)
[2023-04-20] MEDS: ACCU-CHEK COMFORT CURVE STRIP VI SCH ×4 (06:47→21:07)
[2023-04-20] MEDS: AZITHROMYCIN 500MG/ 250ML 250 ML IV SCH (09:48)
[2023-04-20] MEDS: ENOXAPARIN SOD 40 MG/0.4 ML SYRINGE SC SCH (09:48)
[2023-04-20] MEDS: FOLIC ACID 1 MG in D5W 5% 50 ML INJ SCH (09:49)
[2023-04-20] MEDS: Pro-Stat SF 30ml Vanilla GT SCH (09:50)
[2023-04-20] MEDS: POTASSIUM CHL 20MEQ/100ML 100 ML IV SCH ×2 (12:27→14:35)
[2023-04-20] MEDS: fentaNYL Drip 2500mCg/250mlNS 250 ML IV SCH (14:59)
[2023-04-21] VITALS (99 sets, daily range): BP systolic 83–163; BP diastolic 46–99
[2023-04-21] MEDS: MIDAZOLAM DRIP 50 mg/50mL 50 ML IV SCH ×2 (00:21→10:04)
[2023-04-21 04:12] LABS: Basophils # (auto) 0 10 ^3/uL (0-0.2); Basophils % (auto) 0.3 % (0.0-2.0); Eosinophils # (auto) 0.1 10 ^3/uL (0-0.8); Eosinophils % (auto) 1.2 % (0.0-7.0); Hematocrit 29.9 % (41.0-53.0); Hemoglobin 9.9 g/dL (13.5-17.5); Lymphocytes # (auto) 1.1 10 ^3/uL (0.4-5.4); Mean Corpuscular Hgb Conc. 32.9 g/dL (32.0-36.0); Monocytes # (auto) 0.8 10 ^3/uL (0-1.3); Monocytes % (auto) 10.5 % (0.0-12.0); Neutrophils # (auto) 5.7 10 ^3/uL (1.6-8.6); Red Blood Cells 3.52 10^6/uL (4.5-5.90); Red Cell Distribution Width 16.9 % (11.8-14.3); White Blood Cell 7.7 10^3/uL (4.4-10.8)
[2023-04-21 04:21] LABS: BUN/Creatinine Ratio 38.5 (10.0-20.0); Calcium 8.2 mg/dL (8.5-10.1); Potassium 3.5 mmol/L (3.5-5.1)
[2023-04-21] MEDS: NOREPINEPHRINE 8 MG/250ML KIT 250 ML IV SCH (05:06)
[2023-04-21] MEDS: CEFEPIME 1GM/ 50ML 50 ML IV SCH ×3 (05:06→22:26)
[2023-04-21] MEDS: ACCU-CHEK COMFORT CURVE STRIP VI SCH ×4 (06:32→22:26)
[2023-04-21] MEDS: InsuLIN REG 1unit/0.01ml Soln (100units/ml) SC SCH ×4 (06:33→22:00)
[2023-04-21] MEDS: AZITHROMYCIN 500MG/ 250ML 250 ML IV SCH (10:03)
[2023-04-21] MEDS: Pro-Stat SF 30ml Vanilla GT SCH (10:04)
[2023-04-21] MEDS: FOLIC ACID 1 MG in D5W 5% 50 ML INJ SCH (10:04)
[2023-04-21] MEDS: ENOXAPARIN SOD 40 MG/0.4 ML SYRINGE SC SCH (10:06)
[2023-04-21] MEDS: AMIODARONE 450mg/250ml AE 250 ML IV SCH (11:45)
[2023-04-21] MEDS: ACETAMINOPHEN 650 mg PER 20.3 mL UD GT PRN (14:46)
[2023-04-21] MEDS: fentaNYL Drip 2500mCg/250mlNS 250 ML IV SCH (16:02)
[2023-04-22] VITALS (87 sets, daily range): BP systolic 98–160; BP diastolic 17–97
[2023-04-22] MEDS: MIDAZOLAM DRIP 50 mg/50mL 50 ML IV SCH ×3 (02:30→22:30)
[2023-04-22] MEDS: ACETAMINOPHEN 650 mg PER 20.3 mL UD GT PRN ×2 (02:42→15:10)
[2023-04-22] MEDS: AMIODARONE 450mg/250ml AE 250 ML IV SCH ×2 (02:45→17:36)
[2023-04-22 03:55] LABS: Basophils # (auto) 0 10 ^3/uL (0-0.2); Basophils % (auto) 0.4 % (0.0-2.0); Eosinophils # (auto) 0 10 ^3/uL (0-0.8); Eosinophils % (auto) 0.3 % (0.0-7.0); Hematocrit 29.8 % (41.0-53.0); Hemoglobin 9.6 g/dL (13.5-17.5); Lymphocytes # (auto) 1.3 10 ^3/uL (0.4-5.4); Lymphocytes % (auto) 17.1 % (10.0-50.0); Mean Corpuscular Hemoglobin 27.8 pg (28.0-32.0); Mean Corpuscular Hgb Conc. 32.2 g/dL (32.0-36.0); Mean Corpuscular Volume 86.2 fL (80.0-100.0); Monocytes # (auto) 0.9 10 ^3/uL (0-1.3); Monocytes % (auto) 11.8 % (0.0-12.0); Neutrophils # (auto) 5.4 10 ^3/uL (1.6-8.6); Neutrophils % (auto) 70.4 % (37.0-80.0); Nucleated Red Blood Cells % 0.1 %; Red Blood Cells 3.46 10^6/uL (4.5-5.90); Red Cell Distribution Width 17.3 % (11.8-14.3); White Blood Cell 7.7 10^3/uL (4.4-10.8)
[2023-04-22 04:27] LABS: BUN/Creatinine Ratio 32.7 (10.0-20.0); Calcium 8.1 mg/dL (8.5-10.1); Potassium 3.5 mmol/L (3.5-5.1)
[2023-04-22] MEDS: CEFEPIME 1GM/ 50ML 50 ML IV SCH ×3 (06:30→21:59)
[2023-04-22] MEDS: InsuLIN REG 1unit/0.01ml Soln (100units/ml) SC SCH ×4 (06:30→22:00)
[2023-04-22] MEDS: ACCU-CHEK COMFORT CURVE STRIP VI SCH ×4 (06:31→22:16)
[2023-04-22] MEDS: AZITHROMYCIN 500MG/ 250ML 250 ML IV SCH (09:52)
[2023-04-22] MEDS: FOLIC ACID 1 MG in D5W 5% 50 ML INJ SCH (09:53)
[2023-04-22] MEDS: Pro-Stat SF 30ml Vanilla GT SCH (09:54)
[2023-04-22] MEDS: ENOXAPARIN SOD 40 MG/0.4 ML SYRINGE SC SCH (09:54)
[2023-04-22] MEDS: NOREPINEPHRINE 8 MG/250ML KIT 250 ML IV SCH (10:15)
[2023-04-22] MEDS: ALBUTEROL SULF 2.5 MG/0.5ML(0.5%) NEB SOLN NEB PRN (20:22)
[2023-04-23] VITALS (70 sets, daily range): BP systolic 73–139; BP diastolic 48–76
[2023-04-23] MEDS: ACETAMINOPHEN 650 mg PER 20.3 mL UD GT PRN ×2 (02:06→17:37)
[2023-04-23] MEDS: ALBUTEROL SULF 2.5 MG/0.5ML(0.5%) NEB SOLN NEB PRN ×3 (02:21→11:59)
[2023-04-23 04:20] LABS: Hematocrit 30.4 % (41.0-53.0); Hemoglobin 9.7 g/dL (13.5-17.5); Mean Corpuscular Hemoglobin 27.7 pg (28.0-32.0); Mean Corpuscular Hgb Conc. 31.9 g/dL (32.0-36.0); Mean Corpuscular Volume 86.8 fL (80.0-100.0); White Blood Cell 8.9 10^3/uL (4.4-10.8)
[2023-04-23 04:24] LABS: Calcium 8.1 mg/dL (8.5-10.1); Potassium 3.5 mmol/L (3.5-5.1)
[2023-04-23 04:27] LABS: BUN/Creatinine Ratio 34.9 (10.0-20.0)
[2023-04-23 04:37] LABS: Basophils % (manual) 0 (0.0-2.0); Blast Cells 0; Eosinophils % (manual) 0 (0-7); Promyelocytes % 0; Reactive Lymphocytes 0
[2023-04-23] MEDS: CEFEPIME 1GM/ 50ML 50 ML IV SCH ×3 (06:05→22:13)
[2023-04-23] MEDS: InsuLIN REG 1unit/0.01ml Soln (100units/ml) SC SCH ×4 (06:35→22:00)
[2023-04-23] MEDS: ACCU-CHEK COMFORT CURVE STRIP VI SCH ×4 (06:36→22:19)
[2023-04-23] MEDS: AMIODARONE 450mg/250ml AE 250 ML IV SCH ×2 (08:45→23:45)
[2023-04-23 09:18] LABS: Band Neutrophils % (manual) 6; Lymphocytes % (manual) 23 (10.0-50.0); Metamyelocytes % 2; Monocytes % (manual) 6 (0-12); Myelocytes % 1
[2023-04-23] MEDS: Pro-Stat SF 30ml Vanilla GT SCH (10:00)
[2023-04-23] MEDS: ENOXAPARIN SOD 40 MG/0.4 ML SYRINGE SC SCH (10:02)
[2023-04-23] MEDS: FOLIC ACID 1 MG in D5W 5% 50 ML INJ SCH (10:04)
[2023-04-23] MEDS: AZITHROMYCIN 500MG/ 250ML 250 ML IV SCH (10:06)
[2023-04-23] MEDS: NOREPINEPHRINE 8 MG/250ML KIT 250 ML IV SCH (10:15)
[2023-04-23] MEDS: fentaNYL Drip 2500mCg/250mlNS 250 ML IV SCH (18:50)
[2023-04-24] VITALS (86 sets, daily range): BP systolic 81–180; BP diastolic 29–132
[2023-04-24 04:49] LABS: Calcium 7.9 mg/dL (8.5-10.1); Potassium 4.5 mmol/L (3.5-5.1)
[2023-04-24 04:52] LABS: BUN/Creatinine Ratio 37.2 (10.0-20.0)
[2023-04-24] MEDS: CEFEPIME 1GM/ 50ML 50 ML IV SCH ×3 (06:07→23:06)
[2023-04-24] MEDS: ACETAMINOPHEN 650 MG RECT SUPP PR PRN (06:08)
[2023-04-24] MEDS: InsuLIN REG 1unit/0.01ml Soln (100units/ml) SC SCH ×4 (07:00→22:00)
[2023-04-24] MEDS: ACCU-CHEK COMFORT CURVE STRIP VI SCH ×4 (07:00→23:06)
[2023-04-24 07:46] LABS: Mean Corpuscular Volume 85.9 fL (80.0-100.0); White Blood Cell 9.3 10^3/uL (4.4-10.8)
[2023-04-24 07:49] LABS: Hematocrit 29.1 % (41.0-53.0); Hemoglobin 9.3 g/dL (13.5-17.5); Mean Corpuscular Hemoglobin 27.6 pg (28.0-32.0); Mean Corpuscular Hgb Conc. 32.1 g/dL (32.0-36.0); Red Blood Cells 3.38 10^6/uL (4.5-5.90); Red Cell Distribution Width 16.8 % (11.8-14.3)
[2023-04-24 07:55] LABS: Basophils % (manual) 0 (0.0-2.0); Blast Cells 0; Metamyelocytes % 0; Myelocytes % 0; Promyelocytes % 0; Reactive Lymphocytes 0
[2023-04-24 09:37] LABS: Band Neutrophils % (manual) 1; Eosinophils % (manual) 1 (0-7); Lymphocytes % (manual) 20 (10.0-50.0); Monocytes % (manual) 3 (0-12)
[2023-04-24] MEDS: ENOXAPARIN SOD 40 MG/0.4 ML SYRINGE SC SCH (09:52)
[2023-04-24] MEDS: Pro-Stat SF 30ml Vanilla GT SCH ×2 (10:00→16:07)
[2023-04-24] MEDS: NOREPINEPHRINE 8 MG/250ML KIT 250 ML IV SCH (10:15)
[2023-04-24] MEDS: ALBUTEROL SULF 2.5 MG/0.5ML(0.5%) NEB SOLN NEB PRN (18:27)
[2023-04-24] MEDS: fentaNYL Drip 2500mCg/250mlNS 250 ML IV SCH ×2 (23:13→23:15)
[2023-04-25] VITALS (91 sets, daily range): BP systolic 79–149; BP diastolic 34–121
[2023-04-25] MEDS: ALBUTEROL SULF 2.5 MG/0.5ML(0.5%) NEB SOLN NEB PRN (00:35)
[2023-04-25 04:21] LABS: Red Blood Cells 3.26 10^6/uL (4.5-5.90)
[2023-04-25 04:24] LABS: Hematocrit 27.5 % (41.0-53.0); Hemoglobin 9.3 g/dL (13.5-17.5); Mean Corpuscular Hemoglobin 28.5 pg (28.0-32.0); Mean Corpuscular Hgb Conc. 33.8 g/dL (32.0-36.0); Mean Corpuscular Volume 84.3 fL (80.0-100.0); Red Cell Distribution Width 16.7 % (11.8-14.3); White Blood Cell 9.4 10^3/uL (4.4-10.8)
[2023-04-25 04:26] LABS: Basophils % (manual) 0 (0.0-2.0); Blast Cells 0; Eosinophils % (manual) 0 (0-7); Metamyelocytes % 0; Myelocytes % 0; Promyelocytes % 0; Reactive Lymphocytes 0
[2023-04-25 04:35] LABS: BUN/Creatinine Ratio 44.7 (10.0-20.0); Potassium 4.1 mmol/L (3.5-5.1)
[2023-04-25] MEDS: AMIODARONE 450mg/250ml AE 250 ML IV SCH ×2 (05:45→20:45)
[2023-04-25] MEDS: ACCU-CHEK COMFORT CURVE STRIP VI SCH ×4 (06:01→22:07)
[2023-04-25] MEDS: InsuLIN REG 1unit/0.01ml Soln (100units/ml) SC SCH ×4 (06:01→22:00)
[2023-04-25] MEDS: CEFEPIME 1GM/ 50ML 50 ML IV SCH (06:01)
[2023-04-25 07:18] LABS: Band Neutrophils % (manual) 1; Lymphocytes % (manual) 19 (10.0-50.0); Monocytes % (manual) 1 (0-12)
[2023-04-25] MEDS: Pro-Stat SF 30ml Vanilla GT SCH (10:00)
[2023-04-25] MEDS: ENOXAPARIN SOD 40 MG/0.4 ML SYRINGE SC SCH (10:06)
[2023-04-25] MEDS: NOREPINEPHRINE 8 MG/250ML KIT 250 ML IV SCH (10:15)
[2023-04-25] MEDS ORDERED: ACETAMINOPHEN 650 mg PER 20.3 mL UD PO PRN (13:15)
[2023-04-25] MEDS: ceFAZolin 1GM/50ML 50 ML IV SCH ×2 (15:54→22:07)
[2023-04-26] VITALS (98 sets, daily range): BP systolic 70–277; BP diastolic 37–198
[2023-04-26 04:35] LABS: Basophils # (auto) 0 10 ^3/uL (0-0.2); Eosinophils # (auto) 0.1 10 ^3/uL (0-0.8); Hemoglobin 9.6 g/dL (13.5-17.5)
[2023-04-26 04:38] LABS: Basophils % (auto) 0.4 % (0.0-2.0); Eosinophils % (auto) 0.7 % (0.0-7.0); Hematocrit 29.3 % (41.0-53.0); Lymphocytes # (auto) 3.3 10 ^3/uL (0.4-5.4); Lymphocytes % (auto) 29.8 % (10.0-50.0); Mean Corpuscular Hemoglobin 27.4 pg (28.0-32.0); Mean Corpuscular Hgb Conc. 32.7 g/dL (32.0-36.0); Mean Corpuscular Volume 83.9 fL (80.0-100.0); Monocytes # (auto) 0.4 10 ^3/uL (0-1.3); Monocytes % (auto) 3.9 % (0.0-12.0); Neutrophils # (auto) 7.2 10 ^3/uL (1.6-8.6); Neutrophils % (auto) 65.2 % (37.0-80.0); Red Cell Distribution Width 16.7 % (11.8-14.3); White Blood Cell 11.1 10^3/uL (4.4-10.8)
[2023-04-26] MEDS: fentaNYL Drip 2500mCg/250mlNS 250 ML IV SCH ×2 (04:45→22:38)
[2023-04-26 04:53] LABS: Calcium 8.3 mg/dL (8.5-10.1)
[2023-04-26] MEDS: ceFAZolin 1GM/50ML 50 ML IV SCH ×3 (05:37→22:06)
[2023-04-26] MEDS: MIDAZOLAM DRIP 50 mg/50mL 50 ML IV SCH ×2 (06:30→16:30)
[2023-04-26] MEDS: ACCU-CHEK COMFORT CURVE STRIP VI SCH ×4 (06:35→22:07)
[2023-04-26] MEDS: InsuLIN REG 1unit/0.01ml Soln (100units/ml) SC SCH ×4 (06:35→22:00)
[2023-04-26] MEDS: Pro-Stat SF 30ml Vanilla GT SCH (10:00)
[2023-04-26] MEDS: NOREPINEPHRINE 8 MG/250ML KIT 250 ML IV SCH (10:15)
[2023-04-26] MEDS: ENOXAPARIN SOD 40 MG/0.4 ML SYRINGE SC SCH (10:32)
[2023-04-26] MEDS: SANTYL OINTMENT TOP SCH (10:33)
[2023-04-26] MEDS: AMIODARONE 450mg/250ml AE 250 ML IV SCH (11:45)
[2023-04-27] VITALS (99 sets, daily range): BP systolic 85–157; BP diastolic 43–83
[2023-04-27] MEDS: MIDAZOLAM DRIP 50 mg/50mL 50 ML IV SCH ×3 (02:30→16:44)
[2023-04-27] MEDS: AMIODARONE 450mg/250ml AE 250 ML IV SCH ×2 (02:45→17:45)
[2023-04-27 04:35] LABS: Eosinophils # (auto) 0.1 10 ^3/uL (0-0.8); Eosinophils % (auto) 0.7 % (0.0-7.0); Hemoglobin 9.1 g/dL (13.5-17.5); Nucleated Red Blood Cells % 0.1 %; White Blood Cell 9.2 10^3/uL (4.4-10.8)
[2023-04-27 04:38] LABS: Basophils # (auto) 0.1 10 ^3/uL (0-0.2); Basophils % (auto) 0.6 % (0.0-2.0); Hematocrit 28.2 % (41.0-53.0); Lymphocytes # (auto) 2.4 10 ^3/uL (0.4-5.4); Lymphocytes % (auto) 26.2 % (10.0-50.0); Mean Corpuscular Hemoglobin 27.5 pg (28.0-32.0); Mean Corpuscular Hgb Conc. 32.4 g/dL (32.0-36.0); Mean Corpuscular Volume 84.9 fL (80.0-100.0); Monocytes # (auto) 0.5 10 ^3/uL (0-1.3); Monocytes % (auto) 5.6 % (0.0-12.0); Neutrophils # (auto) 6.1 10 ^3/uL (1.6-8.6); Neutrophils % (auto) 66.9 % (37.0-80.0); Red Blood Cells 3.32 10^6/uL (4.5-5.90); Red Cell Distribution Width 16.6 % (11.8-14.3)
[2023-04-27 04:58] LABS: BUN/Creatinine Ratio 32.6 (10.0-20.0); Calcium 8.4 mg/dL (8.5-10.1); Potassium 3.8 mmol/L (3.5-5.1)
[2023-04-27] MEDS: ceFAZolin 1GM/50ML 50 ML IV SCH ×3 (05:41→21:46)
[2023-04-27] MEDS: ACCU-CHEK COMFORT CURVE STRIP VI SCH ×4 (05:42→21:47)
[2023-04-27] MEDS: InsuLIN REG 1unit/0.01ml Soln (100units/ml) SC SCH ×4 (05:44→21:49)
[2023-04-27] MEDS: ALBUTEROL SULF 2.5 MG/0.5ML(0.5%) NEB SOLN NEB PRN ×2 (07:16→11:59)
[2023-04-27] MEDS: NOREPINEPHRINE 8 MG/250ML KIT 250 ML IV SCH (10:15)
[2023-04-27] MEDS ORDERED: LIDOCAINE 2% (LOCAL ANESTH.) PF 5ml SDV ONE (10:16)
[2023-04-27] MEDS: SANTYL OINTMENT TOP SCH (10:37)
[2023-04-27] MEDS: ENOXAPARIN SOD 40 MG/0.4 ML SYRINGE SC SCH (11:37)
[2023-04-27] MEDS: Pro-Stat SF 30ml Vanilla GT SCH (11:37)
[2023-04-27] MEDS: Glucerna 1.2 Cal 1Liter BOTTLE GT SCH (11:38)
[2023-04-28] VITALS (103 sets, daily range): BP systolic 85–141; BP diastolic 48–76
[2023-04-28] MEDS: MIDAZOLAM DRIP 50 mg/50mL 50 ML IV SCH ×2 (00:12→10:49)
[2023-04-28 03:50] LABS: Basophils # (auto) 0 10 ^3/uL (0-0.2); Eosinophils # (auto) 0.1 10 ^3/uL (0-0.8); Monocytes # (auto) 0.5 10 ^3/uL (0-1.3)
[2023-04-28 03:54] LABS: Basophils % (auto) 0.6 % (0.0-2.0); Eosinophils % (auto) 1.5 % (0.0-7.0); Hematocrit 27.1 % (41.0-53.0); Hemoglobin 8.9 g/dL (13.5-17.5); Lymphocytes % (auto) 26.8 % (10.0-50.0); Mean Corpuscular Hemoglobin 27.7 pg (28.0-32.0); Mean Corpuscular Hgb Conc. 32.7 g/dL (32.0-36.0); Mean Corpuscular Volume 84.8 fL (80.0-100.0); Monocytes % (auto) 6.3 % (0.0-12.0); Neutrophils # (auto) 4.9 10 ^3/uL (1.6-8.6); Neutrophils % (auto) 64.8 % (37.0-80.0); Red Cell Distribution Width 16.7 % (11.8-14.3); White Blood Cell 7.6 10^3/uL (4.4-10.8)
[2023-04-28 04:09] LABS: BUN/Creatinine Ratio 32.5 (10.0-20.0); Calcium 8.1 mg/dL (8.5-10.1)
[2023-04-28] MEDS: fentaNYL Drip 2500mCg/250mlNS 250 ML IV SCH (05:07)
[2023-04-28] MEDS: ceFAZolin 1GM/50ML 50 ML IV SCH ×3 (06:48→21:26)
[2023-04-28] MEDS: InsuLIN REG 1unit/0.01ml Soln (100units/ml) SC SCH ×4 (06:49→21:29)
[2023-04-28] MEDS: ACCU-CHEK COMFORT CURVE STRIP VI SCH ×4 (06:49→21:29)
[2023-04-28] MEDS: AMIODARONE 450mg/250ml AE 250 ML IV SCH ×2 (09:25→23:45)
[2023-04-28] MEDS: ENOXAPARIN SOD 40 MG/0.4 ML SYRINGE SC SCH (09:52)
[2023-04-28] MEDS: SANTYL OINTMENT TOP SCH (09:53)
[2023-04-28] MEDS: Pro-Stat SF 30ml Vanilla GT SCH (09:54)
[2023-04-28] MEDS: NOREPINEPHRINE 8 MG/250ML KIT 250 ML IV SCH ×2 (10:15→16:56)
[2023-04-28] MEDS: ACETAMINOPHEN 650 mg PER 20.3 mL UD GT PRN (15:29)
[2023-04-29] VITALS (102 sets, daily range): BP systolic 79–142; BP diastolic 43–76
[2023-04-29] MEDS: MIDAZOLAM DRIP 50 mg/50mL 50 ML IV SCH ×3 (00:31→14:30)
[2023-04-29] MEDS: fentaNYL Drip 2500mCg/250mlNS 250 ML IV SCH ×2 (02:54→18:19)
[2023-04-29 04:18] LABS: Calcium 8.2 mg/dL (8.5-10.1); Potassium 4.5 mmol/L (3.5-5.1)
[2023-04-29 04:42] LABS: Basophils # (auto) 0 10 ^3/uL (0-0.2); Eosinophils # (auto) 0.1 10 ^3/uL (0-0.8); Monocytes # (auto) 0.4 10 ^3/uL (0-1.3); Red Cell Distribution Width 16.6 % (11.8-14.3)
[2023-04-29 04:44] LABS: Basophils % (auto) 0.6 % (0.0-2.0); Eosinophils % (auto) 1.5 % (0.0-7.0); Hematocrit 32.4 % (41.0-53.0); Hemoglobin 10.4 g/dL (13.5-17.5); Lymphocytes # (auto) 2.5 10 ^3/uL (0.4-5.4); Mean Corpuscular Hemoglobin 27.2 pg (28.0-32.0); Mean Corpuscular Hgb Conc. 32.2 g/dL (32.0-36.0); Mean Corpuscular Volume 84.6 fL (80.0-100.0); Monocytes % (auto) 4.5 % (0.0-12.0); Neutrophils # (auto) 5.2 10 ^3/uL (1.6-8.6); Neutrophils % (auto) 63.4 % (37.0-80.0); Nucleated Red Blood Cells % 0.1 %; Red Blood Cells 3.83 10^6/uL (4.5-5.90); White Blood Cell 8.2 10^3/uL (4.4-10.8)
[2023-04-29] MEDS: ceFAZolin 1GM/50ML 50 ML IV SCH ×3 (05:46→22:35)
[2023-04-29] MEDS: ACCU-CHEK COMFORT CURVE STRIP VI SCH ×4 (05:46→22:43)
[2023-04-29] MEDS: InsuLIN REG 1unit/0.01ml Soln (100units/ml) SC SCH ×4 (05:47→22:43)
[2023-04-29] MEDS: ACETAMINOPHEN 650 mg PER 20.3 mL UD GT PRN ×2 (05:48→16:56)
[2023-04-29] MEDS: Pro-Stat SF 30ml Vanilla GT SCH (09:28)
[2023-04-29] MEDS: ENOXAPARIN SOD 40 MG/0.4 ML SYRINGE SC SCH (09:29)
[2023-04-29] MEDS: SANTYL OINTMENT TOP SCH (09:30)
[2023-04-29] MEDS: NOREPINEPHRINE 8 MG/250ML KIT 250 ML IV SCH (10:15)
[2023-04-29] MEDS: AMIODARONE 450mg/250ml AE 250 ML IV SCH (14:45)
[2023-04-30] VITALS (105 sets, daily range): BP systolic 89–149; BP diastolic 49–78
[2023-04-30] MEDS: MIDAZOLAM DRIP 50 mg/50mL 50 ML IV SCH ×2 (01:30→17:03)
[2023-04-30] MEDS: fentaNYL Drip 2500mCg/250mlNS 250 ML IV SCH ×2 (04:45→17:12)
[2023-04-30 05:21] LABS: Potassium 4.6 mmol/L (3.5-5.1)
[2023-04-30 05:26] LABS: BUN/Creatinine Ratio 37.8 (10.0-20.0); Bilirubin, Total 0.3 mg/dL (0.2-1.0); Total Protein 6.6 g/dL (6.4-8.2)
[2023-04-30 05:34] LABS: Basophils # (auto) 0.1 10 ^3/uL (0-0.2); Eosinophils # (auto) 0.1 10 ^3/uL (0-0.8); Monocytes # (auto) 0.4 10 ^3/uL (0-1.3); White Blood Cell 9.7 10^3/uL (4.4-10.8)
[2023-04-30 05:36] LABS: Basophils % (auto) 0.7 % (0.0-2.0); Eosinophils % (auto) 1.3 % (0.0-7.0); Hematocrit 29.5 % (41.0-53.0); Hemoglobin 9.5 g/dL (13.5-17.5); Lymphocytes # (auto) 2.6 10 ^3/uL (0.4-5.4); Lymphocytes % (auto) 26.8 % (10.0-50.0); Mean Corpuscular Hemoglobin 27.2 pg (28.0-32.0); Mean Corpuscular Hgb Conc. 32.2 g/dL (32.0-36.0); Mean Corpuscular Volume 84.5 fL (80.0-100.0); Monocytes % (auto) 4.5 % (0.0-12.0); Neutrophils # (auto) 6.4 10 ^3/uL (1.6-8.6); Neutrophils % (auto) 66.7 % (37.0-80.0); Nucleated Red Blood Cells % 0.1 %; Red Blood Cells 3.49 10^6/uL (4.5-5.90); Red Cell Distribution Width 16.7 % (11.8-14.3)
[2023-04-30] MEDS: AMIODARONE 450mg/250ml AE 250 ML IV SCH (05:45)
[2023-04-30] MEDS: ceFAZolin 1GM/50ML 50 ML IV SCH ×3 (06:25→22:02)
[2023-04-30] MEDS: InsuLIN REG 1unit/0.01ml Soln (100units/ml) SC SCH ×4 (06:27→22:00)
[2023-04-30] MEDS: ACCU-CHEK COMFORT CURVE STRIP VI SCH ×4 (06:27→22:02)
[2023-04-30] MEDS: Pro-Stat SF 30ml Vanilla GT SCH (10:00)
[2023-04-30] MEDS: NOREPINEPHRINE 8 MG/250ML KIT 250 ML IV SCH (10:15)
[2023-04-30] MEDS: ENOXAPARIN SOD 40 MG/0.4 ML SYRINGE SC SCH (11:33)
[2023-04-30] MEDS: SANTYL OINTMENT TOP SCH (11:33)
[2023-04-30] MEDS: Glucerna 1.2 Cal 1Liter BOTTLE GT SCH (13:53)
[2023-05-01] VITALS (106 sets, daily range): BP systolic 105–147; BP diastolic 59–87
[2023-05-01] MEDS: ceFAZolin 1GM/50ML 50 ML IV SCH ×3 (05:59→22:16)
[2023-05-01] MEDS: ACCU-CHEK COMFORT CURVE STRIP VI SCH ×4 (06:01→22:18)
[2023-05-01] MEDS: InsuLIN REG 1unit/0.01ml Soln (100units/ml) SC SCH ×4 (06:01→22:00)
[2023-05-01] MEDS: ENOXAPARIN SOD 40 MG/0.4 ML SYRINGE SC SCH (09:31)
[2023-05-01] MEDS: SANTYL OINTMENT TOP SCH (09:33)
[2023-05-01] MEDS: Pro-Stat SF 30ml Vanilla GT SCH (10:00)
[2023-05-01] MEDS: NOREPINEPHRINE 8 MG/250ML KIT 250 ML IV SCH (10:15)
[2023-05-01] MEDS ORDERED: FUROSEMIDE 20 MG/2 ML VIAL IV ONE (11:30)
[2023-05-01] MEDS: AMIODARONE 450mg/250ml AE 250 ML IV SCH ×2 (11:45→12:07)
[2023-05-01] MEDS: MIDAZOLAM DRIP 50 mg/50mL 50 ML IV SCH ×3 (12:07→22:49)
[2023-05-01 12:20] LABS: Eosinophils # (auto) 0 10 ^3/uL (0-0.8); Hemoglobin 8.8 g/dL (13.5-17.5); Lymphocytes # (auto) 1.3 10 ^3/uL (0.4-5.4)
[2023-05-01 12:22] LABS: Basophils # (auto) 0.1 10 ^3/uL (0-0.2); Basophils % (auto) 0.7 % (0.0-2.0); Eosinophils % (auto) 0.3 % (0.0-7.0); Hematocrit 27.9 % (41.0-53.0); Lymphocytes % (auto) 17.2 % (10.0-50.0); Mean Corpuscular Hemoglobin 26.5 pg (28.0-32.0); Mean Corpuscular Hgb Conc. 31.5 g/dL (32.0-36.0); Mean Corpuscular Volume 84.1 fL (80.0-100.0); Monocytes # (auto) 0.4 10 ^3/uL (0-1.3); Monocytes % (auto) 4.6 % (0.0-12.0); Neutrophils # (auto) 5.9 10 ^3/uL (1.6-8.6); Neutrophils % (auto) 77.2 % (37.0-80.0); Nucleated Red Blood Cells % 0.1 %; Red Blood Cells 3.31 10^6/uL (4.5-5.90); Red Cell Distribution Width 16.9 % (11.8-14.3); White Blood Cell 7.6 10^3/uL (4.4-10.8)
[2023-05-01 12:23] LABS: BUN/Creatinine Ratio 32.5 (10.0-20.0); Calcium 8.6 mg/dL (8.5-10.1); Potassium 4.1 mmol/L (3.5-5.1)
[2023-05-01] MEDS: fentaNYL Drip 2500mCg/250mlNS 250 ML IV SCH (20:45)
[2023-05-02] VITALS (88 sets, daily range): BP systolic 94–159; BP diastolic 53–87
[2023-05-02] MEDS: AMIODARONE 450mg/250ml AE 250 ML IV SCH ×2 (02:45→17:45)
[2023-05-02 04:35] LABS: Basophils # (auto) 0.1 10 ^3/uL (0-0.2); Basophils % (auto) 1.7 % (0.0-2.0); Eosinophils # (auto) 0.1 10 ^3/uL (0-0.8); Eosinophils % (auto) 1.7 % (0.0-7.0); Hematocrit 26.5 % (41.0-53.0); Hemoglobin 8.7 g/dL (13.5-17.5); Lymphocytes # (auto) 1.9 10 ^3/uL (0.4-5.4); Lymphocytes % (auto) 36.2 % (10.0-50.0); Mean Corpuscular Hemoglobin 27.5 pg (28.0-32.0); Mean Corpuscular Hgb Conc. 32.8 g/dL (32.0-36.0); Mean Corpuscular Volume 83.8 fL (80.0-100.0); Monocytes # (auto) 0.5 10 ^3/uL (0-1.3); Monocytes % (auto) 8.7 % (0.0-12.0); Neutrophils # (auto) 2.7 10 ^3/uL (1.6-8.6); Neutrophils % (auto) 51.7 % (37.0-80.0); Nucleated Red Blood Cells % 0.1 %; Red Blood Cells 3.16 10^6/uL (4.5-5.90); Red Cell Distribution Width 16.3 % (11.8-14.3); White Blood Cell 5.3 10^3/uL (4.4-10.8)
[2023-05-02 04:47] LABS: BUN/Creatinine Ratio 28.6 (10.0-20.0); Calcium 8.2 mg/dL (8.5-10.1); Potassium 3.5 mmol/L (3.5-5.1)
[2023-05-02] MEDS: InsuLIN REG 1unit/0.01ml Soln (100units/ml) SC SCH ×4 (06:00→21:16)
[2023-05-02] MEDS: ceFAZolin 1GM/50ML 50 ML IV SCH ×3 (06:07→21:00)
[2023-05-02] MEDS: ACCU-CHEK COMFORT CURVE STRIP VI SCH ×4 (06:09→21:00)
[2023-05-02] MEDS: ENOXAPARIN SOD 40 MG/0.4 ML SYRINGE SC SCH (09:48)
[2023-05-02] MEDS: SANTYL OINTMENT TOP SCH (09:50)
[2023-05-02] MEDS: NOREPINEPHRINE 8 MG/250ML KIT 250 ML IV SCH (10:15)
[2023-05-02] MEDS: MIDAZOLAM DRIP 50 mg/50mL 50 ML IV SCH ×2 (12:30→22:28)
[2023-05-02] MEDS: Pro-Stat SF 30ml Vanilla GT SCH (15:11)
[2023-05-02] MEDS ORDERED: FUROSEMIDE 20 MG/2 ML VIAL IV ONE (18:00)
[2023-05-02] MEDS: Glucerna 1.2 Cal 1Liter BOTTLE GT SCH (18:18)
[2023-05-02] MEDS: MORPHINE SULFATE INJ 2 MG/ml SYRG IV PRN (18:51)
[2023-05-02] MEDS: ALBUTEROL SULF 2.5 MG/0.5ML(0.5%) NEB SOLN NEB PRN (20:04)
[2023-05-02] MEDS: LORazepam 2MG/ML-1ML VIAL IV PRN (22:33)
[2023-05-03] VITALS (32 sets, daily range): BP systolic 121–164; BP diastolic 61–100
[2023-05-03] MEDS: fentaNYL Drip 2500mCg/250mlNS 250 ML IV SCH (02:11)
[2023-05-03] MEDS: MORPHINE SULFATE INJ 2 MG/ml SYRG IV PRN ×4 (02:34→20:59)
[2023-05-03 04:14] LABS: Basophils # (auto) 0.1 10 ^3/uL (0-0.2); Eosinophils # (auto) 0 10 ^3/uL (0-0.8); Lymphocytes # (auto) 1.8 10 ^3/uL (0.4-5.4); Monocytes # (auto) 0.5 10 ^3/uL (0-1.3)
[2023-05-03 04:18] LABS: Basophils % (auto) 1.3 % (0.0-2.0); Eosinophils % (auto) 0.5 % (0.0-7.0); Hematocrit 30.2 % (41.0-53.0); Lymphocytes % (auto) 24.6 % (10.0-50.0); Mean Corpuscular Hemoglobin 27.7 pg (28.0-32.0); Mean Corpuscular Hgb Conc. 33.2 g/dL (32.0-36.0); Mean Corpuscular Volume 83.4 fL (80.0-100.0); Monocytes % (auto) 7.3 % (0.0-12.0); Neutrophils # (auto) 4.8 10 ^3/uL (1.6-8.6); Neutrophils % (auto) 66.3 % (37.0-80.0); Nucleated Red Blood Cells % 0.1 %; Red Blood Cells 3.63 10^6/uL (4.5-5.90); Red Cell Distribution Width 16.3 % (11.8-14.3); White Blood Cell 7.2 10^3/uL (4.4-10.8)
[2023-05-03 04:30] LABS: BUN/Creatinine Ratio 36.8 (10.0-20.0); Calcium 8.5 mg/dL (8.5-10.1); Potassium 3.4 mmol/L (3.5-5.1)
[2023-05-03] MEDS: ceFAZolin 1GM/50ML 50 ML IV SCH ×3 (05:55→21:13)
[2023-05-03] MEDS: ACCU-CHEK COMFORT CURVE STRIP VI SCH ×4 (05:55→21:21)
[2023-05-03] MEDS: InsuLIN REG 1unit/0.01ml Soln (100units/ml) SC SCH ×4 (06:05→21:23)
[2023-05-03] MEDS: MIDAZOLAM DRIP 50 mg/50mL 50 ML IV SCH (08:30)
[2023-05-03] MEDS: AMIODARONE 450mg/250ml AE 250 ML IV SCH (08:45)
[2023-05-03] MEDS: NOREPINEPHRINE 8 MG/250ML KIT 250 ML IV SCH (09:03)
[2023-05-03] MEDS ORDERED: PANTOPRAZOLE 40 MG/10 ML VIAL INJ IV ONE (10:45)
[2023-05-03] MEDS: ENOXAPARIN SOD 40 MG/0.4 ML SYRINGE SC SCH (11:15)
[2023-05-03] MEDS: SANTYL OINTMENT TOP SCH (11:16)
[2023-05-03] MEDS: LORazepam 2MG/ML-1ML VIAL IV PRN ×2 (13:48→23:11)
[2023-05-03] MEDS: Pro-Stat SF 30ml Vanilla GT SCH (13:49)
[2023-05-03] MEDS: Glucerna 1.2 Cal 1Liter BOTTLE GT SCH (13:49)
[2023-05-03] MEDS: ACETYLCYSTEINE 10 %(100MG/ML) SOL 4ML NEB SCH ×2 (14:28→22:18)
[2023-05-03] MEDS: LEVALBUTEROL HCL 1.25 MG/3 ML NEB NEB SCH ×2 (14:28→22:21)
[2023-05-04] VITALS (94 sets, daily range): BP systolic 89–160; BP diastolic 49–87
[2023-05-04] MEDS: MORPHINE SULFATE INJ 2 MG/ml SYRG IV PRN ×4 (03:51→20:22)
[2023-05-04 04:41] LABS: Basophils # (auto) 0.1 10 ^3/uL (0-0.2); Eosinophils # (auto) 0 10 ^3/uL (0-0.8); Hemoglobin 8.5 g/dL (13.5-17.5); Lymphocytes # (auto) 1.6 10 ^3/uL (0.4-5.4); Monocytes # (auto) 0.5 10 ^3/uL (0-1.3); Neutrophils # (auto) 3.2 10 ^3/uL (1.6-8.6); White Blood Cell 5.4 10^3/uL (4.4-10.8)
[2023-05-04 04:43] LABS: Basophils % (auto) 1.3 % (0.0-2.0); Eosinophils % (auto) 0.5 % (0.0-7.0); Hematocrit 25.4 % (41.0-53.0); Lymphocytes % (auto) 28.9 % (10.0-50.0); Mean Corpuscular Hgb Conc. 33.5 g/dL (32.0-36.0); Mean Corpuscular Volume 83.7 fL (80.0-100.0); Monocytes % (auto) 9.2 % (0.0-12.0); Neutrophils % (auto) 60.1 % (37.0-80.0); Red Blood Cells 3.03 10^6/uL (4.5-5.90); Red Cell Distribution Width 16.2 % (11.8-14.3)
[2023-05-04 04:56] LABS: Calcium 8.5 mg/dL (8.5-10.1)
[2023-05-04 04:58] LABS: BUN/Creatinine Ratio 34.9 (10.0-20.0)
[2023-05-04 05:15] LABS: Potassium 2.9 mmol/L (3.5-5.1)
[2023-05-04] MEDS: POTASSIUM CHL 20MEQ/100ML 100 ML IV SCH ×2 (05:42→08:10)
[2023-05-04] MEDS: ceFAZolin 1GM/50ML 50 ML IV SCH ×3 (06:01→21:10)
[2023-05-04] MEDS: ACCU-CHEK COMFORT CURVE STRIP VI SCH ×4 (06:13→21:09)
[2023-05-04] MEDS: InsuLIN REG 1unit/0.01ml Soln (100units/ml) SC SCH ×4 (06:13→21:09)
[2023-05-04] MEDS: LEVALBUTEROL HCL 1.25 MG/3 ML NEB NEB SCH ×3 (06:17→22:35)
[2023-05-04] MEDS: ACETYLCYSTEINE 10 %(100MG/ML) SOL 4ML NEB SCH ×3 (06:18→22:35)
[2023-05-04] MEDS: LORazepam 2MG/ML-1ML VIAL IV PRN ×2 (08:50→18:25)
[2023-05-04] MEDS: Pro-Stat SF 30ml Vanilla GT SCH (09:44)
[2023-05-04] MEDS: ENOXAPARIN SOD 40 MG/0.4 ML SYRINGE SC SCH (09:44)
[2023-05-04] MEDS: PANTOPRAZOLE 40 MG/10 ML VIAL INJ IV SCH (10:19)
[2023-05-04] MEDS: SANTYL OINTMENT TOP SCH (10:58)
[2023-05-04] MEDS ORDERED: POTASSIUM CHL 20MEQ/100ML 100 ML IV ONE (11:30)
[2023-05-04] MEDS ORDERED: FUROSEMIDE 20 MG/2 ML VIAL IV ONE (11:45)
[2023-05-04] MEDS: ALBUTEROL SULF 2.5 MG/0.5ML(0.5%) NEB SOLN NEB PRN (13:41)
[2023-05-04 16:44] LABS: Albumin 2.6 g/dL (3.4-5.0); Calcium 8.6 mg/dL (8.5-10.1); Magnesium 2.2 mg/dL (1.6-2.6); Potassium 4.9 mmol/L (3.5-5.1)
[2023-05-04 16:48] LABS: BUN/Creatinine Ratio 25.4 (10.0-20.0); Bilirubin, Total 0.4 mg/dL (0.2-1.0); Total Protein 7.9 g/dL (6.4-8.2)
[2023-05-04] MEDS: Glucerna 1.2 Cal 1Liter BOTTLE GT SCH (18:43)
[2023-05-05] VITALS (92 sets, daily range): BP systolic 83–126; BP diastolic 51–80
[2023-05-05] MEDS: LORazepam 2MG/ML-1ML VIAL IV PRN ×2 (00:47→08:49)
[2023-05-05] MEDS ORDERED: ALPRAZolam 0.5 MG TAB PO ONE (03:45)
[2023-05-05 04:32] LABS: Basophils # (auto) 0.1 10 ^3/uL (0-0.2); Eosinophils # (auto) 0.1 10 ^3/uL (0-0.8); Eosinophils % (auto) 1.1 % (0.0-7.0); Lymphocytes # (auto) 1.7 10 ^3/uL (0.4-5.4); Mean Corpuscular Hemoglobin 27.8 pg (28.0-32.0); Monocytes # (auto) 0.6 10 ^3/uL (0-1.3); Neutrophils # (auto) 3.4 10 ^3/uL (1.6-8.6); White Blood Cell 5.9 10^3/uL (4.4-10.8)
[2023-05-05 04:33] LABS: Basophils % (auto) 1.8 % (0.0-2.0); Hematocrit 27.5 % (41.0-53.0); Hemoglobin 9.1 g/dL (13.5-17.5); Lymphocytes % (auto) 29.2 % (10.0-50.0); Mean Corpuscular Hgb Conc. 33.2 g/dL (32.0-36.0); Mean Corpuscular Volume 83.7 fL (80.0-100.0); Monocytes % (auto) 10.4 % (0.0-12.0); Neutrophils % (auto) 57.5 % (37.0-80.0); Red Blood Cells 3.29 10^6/uL (4.5-5.90); Red Cell Distribution Width 16.6 % (11.8-14.3)
[2023-05-05 04:49] LABS: BUN/Creatinine Ratio 40.4 (10.0-20.0); Calcium 8.7 mg/dL (8.5-10.1); Potassium 3.4 mmol/L (3.5-5.1)
[2023-05-05] MEDS: ACCU-CHEK COMFORT CURVE STRIP VI SCH ×4 (05:58→21:18)
[2023-05-05] MEDS: InsuLIN REG 1unit/0.01ml Soln (100units/ml) SC SCH ×4 (05:59→21:32)
[2023-05-05] MEDS: ceFAZolin 1GM/50ML 50 ML IV SCH ×3 (05:59→21:19)
[2023-05-05] MEDS: LEVALBUTEROL HCL 1.25 MG/3 ML NEB NEB SCH ×3 (06:44→22:17)
[2023-05-05] MEDS: ACETYLCYSTEINE 10 %(100MG/ML) SOL 4ML NEB SCH ×3 (06:44→22:17)
[2023-05-05] MEDS: MORPHINE SULFATE INJ 2 MG/ml SYRG IV PRN (08:09)
[2023-05-05] MEDS ORDERED: FUROSEMIDE 20 MG/2 ML VIAL IV ONE (09:15)
[2023-05-05] MEDS: POTASSIUM CHL 20MEQ/100ML 100 ML IV SCH ×2 (09:51→12:04)
[2023-05-05] MEDS: ENOXAPARIN SOD 40 MG/0.4 ML SYRINGE SC SCH (09:52)
[2023-05-05] MEDS: PANTOPRAZOLE 40 MG/10 ML VIAL INJ IV SCH (09:52)
[2023-05-05] MEDS: SANTYL OINTMENT TOP SCH (10:18)
[2023-05-05] MEDS: Pro-Stat SF 30ml Vanilla GT SCH (10:19)
[2023-05-05] MEDS ORDERED: ETOMIDATE (2MG/ML) 20ML VIAL IV ONE (11:15)
[2023-05-05] MEDS ORDERED: ROCURONIUM 10MG/ML 10ML VIAL IV ONE (11:15)
[2023-05-05] MEDS: NOREPINEPHRINE 8 MG/250ML KIT 250 ML IV SCH ×2 (11:15→14:42)
[2023-05-05] MEDS: PROPOFOL 100 ML IV SCH (11:15)
[2023-05-05] MEDS: fentaNYL Drip 2500mCg/250mlNS 250 ML IV SCH (12:02)
[2023-05-05] MEDS: MIDAZOLAM DRIP 50 mg/50mL 50 ML IV SCH ×3 (12:03→23:25)
[2023-05-05] MEDS ORDERED: POTASSIUM CHL 20MEQ/100ML 100 ML IV ONE (14:30)
[2023-05-05] MEDS: FUROSEMIDE 20 MG/2 ML VIAL IV SCH (20:19)
[2023-05-06] VITALS (108 sets, daily range): BP systolic 90–123; BP diastolic 53–79
[2023-05-06 03:40] LABS: Basophils # (auto) 0.1 10 ^3/uL (0-0.2); Eosinophils # (auto) 0.1 10 ^3/uL (0-0.8); Hemoglobin 8.8 g/dL (13.5-17.5); Lymphocytes # (auto) 2.1 10 ^3/uL (0.4-5.4); Monocytes # (auto) 0.5 10 ^3/uL (0-1.3); Neutrophils # (auto) 3.9 10 ^3/uL (1.6-8.6); White Blood Cell 6.7 10^3/uL (4.4-10.8)
[2023-05-06 03:44] LABS: Basophils % (auto) 1.4 % (0.0-2.0); Eosinophils % (auto) 1.8 % (0.0-7.0); Hematocrit 27.2 % (41.0-53.0); Lymphocytes % (auto) 31.8 % (10.0-50.0); Mean Corpuscular Hemoglobin 27.3 pg (28.0-32.0); Mean Corpuscular Hgb Conc. 32.4 g/dL (32.0-36.0); Mean Corpuscular Volume 84.1 fL (80.0-100.0); Monocytes % (auto) 7.7 % (0.0-12.0); Neutrophils % (auto) 57.3 % (37.0-80.0); Nucleated Red Blood Cells % 0.1 %; Red Blood Cells 3.23 10^6/uL (4.5-5.90); Red Cell Distribution Width 16.4 % (11.8-14.3)
[2023-05-06 03:51] LABS: Calcium 8.6 mg/dL (8.5-10.1); Potassium 4.2 mmol/L (3.5-5.1)
[2023-05-06 03:53] LABS: BUN/Creatinine Ratio 42.9 (10.0-20.0)
[2023-05-06] MEDS: MIDAZOLAM DRIP 50 mg/50mL 50 ML IV SCH ×2 (05:49→16:33)
[2023-05-06] MEDS: ceFAZolin 1GM/50ML 50 ML IV SCH (05:49)
[2023-05-06] MEDS: FUROSEMIDE 20 MG/2 ML VIAL IV SCH ×2 (05:49→17:27)
[2023-05-06] MEDS: ACCU-CHEK COMFORT CURVE STRIP VI SCH ×4 (05:49→21:23)
[2023-05-06] MEDS: InsuLIN REG 1unit/0.01ml Soln (100units/ml) SC SCH ×4 (06:08→21:32)
[2023-05-06] MEDS: LEVALBUTEROL HCL 1.25 MG/3 ML NEB NEB SCH ×3 (06:59→21:55)
[2023-05-06] MEDS: ACETYLCYSTEINE 10 %(100MG/ML) SOL 4ML NEB SCH ×3 (06:59→21:55)
[2023-05-06] MEDS: SANTYL OINTMENT TOP SCH (09:44)
[2023-05-06] MEDS: ENOXAPARIN SOD 40 MG/0.4 ML SYRINGE SC SCH (09:59)
[2023-05-06] MEDS: PANTOPRAZOLE 40 MG/10 ML VIAL INJ IV SCH (09:59)
[2023-05-06] MEDS: Pro-Stat SF 30ml Vanilla GT SCH (10:00)
[2023-05-06] MEDS: PROPOFOL 100 ML IV SCH (11:15)
[2023-05-06] MEDS: fentaNYL Drip 2500mCg/250mlNS 250 ML IV SCH (11:15)
[2023-05-06] MEDS ORDERED: VANCOMYCIN PER PHARMACY 0 MG IV SCH (12:45)
[2023-05-06] MEDS ORDERED: VANCOMYCIN 1GM/250ML 250 ML IV ONE (13:15)
[2023-05-06] MEDS: MEROPENEM 1GM IVPB 100 ML IV SCH ×2 (14:00→21:23)
[2023-05-06] MEDS: ACETAMINOPHEN 650 mg PER 20.3 mL UD GT PRN (16:32)
[2023-05-07] VITALS (106 sets, daily range): BP systolic 88–133; BP diastolic 59–99
[2023-05-07] MEDS: MIDAZOLAM DRIP 50 mg/50mL 50 ML IV SCH (03:39)
[2023-05-07 04:12] LABS: Albumin 2.5 g/dL (3.4-5.0); Calcium 8.5 mg/dL (8.5-10.1)
[2023-05-07 04:16] LABS: BUN/Creatinine Ratio 44.6 (10.0-20.0); Bilirubin, Total 0.3 mg/dL (0.2-1.0); Total Protein 7.1 g/dL (6.4-8.2)
[2023-05-07 04:18] LABS: Basophils # (auto) 0.1 10 ^3/uL (0-0.2); Basophils % (auto) 1.3 % (0.0-2.0); Eosinophils # (auto) 0.2 10 ^3/uL (0-0.8); Eosinophils % (auto) 3.8 % (0.0-7.0); Hemoglobin 9.7 g/dL (13.5-17.5); Lymphocytes # (auto) 2.1 10 ^3/uL (0.4-5.4); Lymphocytes % (auto) 43.9 % (10.0-50.0); Mean Corpuscular Hemoglobin 27.1 pg (28.0-32.0); Mean Corpuscular Hgb Conc. 32.3 g/dL (32.0-36.0); Monocytes # (auto) 0.4 10 ^3/uL (0-1.3); Nucleated Red Blood Cells % 0.1 %; Red Blood Cells 3.58 10^6/uL (4.5-5.90); Red Cell Distribution Width 16.4 % (11.8-14.3); White Blood Cell 4.7 10^3/uL (4.4-10.8)
[2023-05-07] MEDS: FUROSEMIDE 20 MG/2 ML VIAL IV SCH ×2 (05:49→18:40)
[2023-05-07] MEDS: ACCU-CHEK COMFORT CURVE STRIP VI SCH ×4 (05:51→21:30)
[2023-05-07] MEDS: MEROPENEM 1GM IVPB 100 ML IV SCH ×3 (05:51→21:30)
[2023-05-07] MEDS: InsuLIN REG 1unit/0.01ml Soln (100units/ml) SC SCH ×4 (05:54→21:32)
[2023-05-07] MEDS: fentaNYL Drip 2500mCg/250mlNS 250 ML IV SCH (06:14)
[2023-05-07] MEDS: ACETYLCYSTEINE 10 %(100MG/ML) SOL 4ML NEB SCH ×3 (06:21→22:02)
[2023-05-07] MEDS: LEVALBUTEROL HCL 1.25 MG/3 ML NEB NEB SCH ×3 (06:21→22:02)
[2023-05-07] MEDS: PANTOPRAZOLE 40 MG/10 ML VIAL INJ IV SCH (10:58)
[2023-05-07] MEDS: Pro-Stat SF 30ml Vanilla GT SCH (10:58)
[2023-05-07] MEDS: VANCOMYCIN 750mg/250ml 250 ML IV SCH (10:58)
[2023-05-07] MEDS: ENOXAPARIN SOD 40 MG/0.4 ML SYRINGE SC SCH (10:59)
[2023-05-07] MEDS: SANTYL OINTMENT TOP SCH (11:00)
[2023-05-07] MEDS: PROPOFOL 100 ML IV SCH (11:15)
[2023-05-07] MEDS: NOREPINEPHRINE 8 MG/250ML KIT 250 ML IV SCH (11:15)
[2023-05-07] MEDS: ACETAMINOPHEN 650 mg PER 20.3 mL UD GT PRN (16:48)
[2023-05-08] VITALS (95 sets, daily range): BP systolic 91–145; BP diastolic 52–81
[2023-05-08 03:41] LABS: Basophils # (auto) 0.1 10 ^3/uL (0-0.2); Eosinophils # (auto) 0.2 10 ^3/uL (0-0.8); Hemoglobin 9.5 g/dL (13.5-17.5); Monocytes # (auto) 0.5 10 ^3/uL (0-1.3); Neutrophils # (auto) 2.9 10 ^3/uL (1.6-8.6); Nucleated Red Blood Cells % 0.1 %; Red Cell Distribution Width 16.2 % (11.8-14.3); White Blood Cell 5.6 10^3/uL (4.4-10.8)
[2023-05-08 03:43] LABS: Basophils % (auto) 1.1 % (0.0-2.0); Eosinophils % (auto) 4.3 % (0.0-7.0); Hematocrit 29.3 % (41.0-53.0); Lymphocytes # (auto) 1.9 10 ^3/uL (0.4-5.4); Lymphocytes % (auto) 34.4 % (10.0-50.0); Mean Corpuscular Hemoglobin 27.2 pg (28.0-32.0); Mean Corpuscular Hgb Conc. 32.4 g/dL (32.0-36.0); Mean Corpuscular Volume 83.8 fL (80.0-100.0); Monocytes % (auto) 8.9 % (0.0-12.0); Neutrophils % (auto) 51.3 % (37.0-80.0)
[2023-05-08 03:57] LABS: BUN/Creatinine Ratio 39.6 (10.0-20.0); Calcium 8.8 mg/dL (8.5-10.1); Potassium 3.6 mmol/L (3.5-5.1)
[2023-05-08] MEDS: VANCOMYCIN 750mg/250ml 250 ML IV SCH ×2 (04:49→21:36)
[2023-05-08] MEDS: FUROSEMIDE 20 MG/2 ML VIAL IV SCH ×2 (06:23→18:08)
[2023-05-08] MEDS: fentaNYL Drip 2500mCg/250mlNS 250 ML IV SCH (06:24)
[2023-05-08] MEDS: ACCU-CHEK COMFORT CURVE STRIP VI SCH ×4 (06:33→22:24)
[2023-05-08] MEDS: InsuLIN REG 1unit/0.01ml Soln (100units/ml) SC SCH ×4 (06:34→22:00)
[2023-05-08] MEDS: ACETYLCYSTEINE 10 %(100MG/ML) SOL 4ML NEB SCH ×4 (06:36→22:00)
[2023-05-08] MEDS: LEVALBUTEROL HCL 1.25 MG/3 ML NEB NEB SCH ×4 (06:36→22:00)
[2023-05-08] MEDS: MEROPENEM 1GM IVPB 100 ML IV SCH ×3 (06:59→22:24)
[2023-05-08] MEDS: ENOXAPARIN SOD 40 MG/0.4 ML SYRINGE SC SCH (10:04)
[2023-05-08] MEDS: PANTOPRAZOLE 40 MG/10 ML VIAL INJ IV SCH (10:04)
[2023-05-08] MEDS: SANTYL OINTMENT TOP SCH (10:06)
[2023-05-08] MEDS: MIDAZOLAM DRIP 50 mg/50mL 50 ML IV SCH (11:15)
[2023-05-08] MEDS: NOREPINEPHRINE 8 MG/250ML KIT 250 ML IV SCH (11:15)
[2023-05-08] MEDS: PROPOFOL 100 ML IV SCH (11:15)
[2023-05-08] MEDS: Pro-Stat SF 30ml Vanilla GT SCH (15:27)
[2023-05-09] VITALS (98 sets, daily range): BP systolic 91–191; BP diastolic 59–145
[2023-05-09 04:18] LABS: Basophils # (auto) 0.1 10 ^3/uL (0-0.2); Eosinophils # (auto) 0.3 10 ^3/uL (0-0.8); Hemoglobin 9.5 g/dL (13.5-17.5); Lymphocytes # (auto) 2.3 10 ^3/uL (0.4-5.4); Neutrophils # (auto) 2.7 10 ^3/uL (1.6-8.6)
[2023-05-09 04:20] LABS: Basophils % (auto) 1.4 % (0.0-2.0); Eosinophils % (auto) 5.5 % (0.0-7.0); Hematocrit 29.5 % (41.0-53.0); Lymphocytes % (auto) 38.7 % (10.0-50.0); Mean Corpuscular Hemoglobin 27.1 pg (28.0-32.0); Mean Corpuscular Hgb Conc. 32.3 g/dL (32.0-36.0); Monocytes # (auto) 0.5 10 ^3/uL (0-1.3); Monocytes % (auto) 8.9 % (0.0-12.0); Neutrophils % (auto) 45.5 % (37.0-80.0); Nucleated Red Blood Cells % 0.1 %; Red Blood Cells 3.52 10^6/uL (4.5-5.90)
[2023-05-09] MEDS: fentaNYL Drip 2500mCg/250mlNS 250 ML IV SCH (04:27)
[2023-05-09 04:34] LABS: Potassium 3.4 mmol/L (3.5-5.1)
[2023-05-09 04:35] LABS: BUN/Creatinine Ratio 41.8 (10.0-20.0)
[2023-05-09] MEDS: MEROPENEM 1GM IVPB 100 ML IV SCH ×3 (05:52→23:03)
[2023-05-09] MEDS: FUROSEMIDE 20 MG/2 ML VIAL IV SCH ×2 (05:54→17:55)
[2023-05-09] MEDS: InsuLIN REG 1unit/0.01ml Soln (100units/ml) SC SCH ×4 (06:01→23:20)
[2023-05-09] MEDS: ACCU-CHEK COMFORT CURVE STRIP VI SCH ×4 (06:01→23:03)
[2023-05-09] MEDS: ACETYLCYSTEINE 10 %(100MG/ML) SOL 4ML NEB SCH ×3 (06:23→22:18)
[2023-05-09] MEDS: LEVALBUTEROL HCL 1.25 MG/3 ML NEB NEB SCH ×3 (06:23→22:18)
[2023-05-09] MEDS: PANTOPRAZOLE 40 MG/10 ML VIAL INJ IV SCH (10:29)
[2023-05-09] MEDS: ENOXAPARIN SOD 40 MG/0.4 ML SYRINGE SC SCH (10:29)
[2023-05-09] MEDS: Pro-Stat SF 30ml Vanilla GT SCH (10:30)
[2023-05-09] MEDS: SANTYL OINTMENT TOP SCH (10:31)
[2023-05-09] MEDS: PROPOFOL 100 ML IV SCH (11:15)
[2023-05-09] MEDS: MIDAZOLAM DRIP 50 mg/50mL 50 ML IV SCH (11:15)
[2023-05-09] MEDS: NOREPINEPHRINE 8 MG/250ML KIT 250 ML IV SCH (11:15)
[2023-05-09] MEDS ORDERED: POTASSIUM CHLORIDE 20 MEQ, LIDOCAINE 1% (LOCAL ANESTH.) 2 ML in SODIUM CHL 0.9% 100 ML IV ONE (14:30)
[2023-05-09] MEDS: VANCOMYCIN 750mg/250ml 250 ML IV SCH (15:36)
[2023-05-09 18:30] LABS: Urine WBC None Seen /hpf (0 - 3)
[2023-05-09 18:41] LABS: Urine Bacteria FEW /hpf (None Seen); Urine Blood 1+ /uL (Negative); Urine Hyaline Cast FEW /lpf (0 - 2); Urine Mucus FEW (None Seen)
[2023-05-10] VITALS (90 sets, daily range): BP systolic 83–142; BP diastolic 55–82
[2023-05-10] MEDS: ACETAMINOPHEN 650 mg PER 20.3 mL UD GT PRN ×2 (00:05→22:43)
[2023-05-10 04:20] LABS: Basophils # (auto) 0.1 10 ^3/uL (0-0.2); Basophils % (auto) 1.3 % (0.0-2.0); Eosinophils # (auto) 0.5 10 ^3/uL (0-0.8); Eosinophils % (auto) 9.8 % (0.0-7.0); Hematocrit 27.4 % (41.0-53.0); Hemoglobin 9.1 g/dL (13.5-17.5); Lymphocytes # (auto) 2.1 10 ^3/uL (0.4-5.4); Lymphocytes % (auto) 41.3 % (10.0-50.0); Mean Corpuscular Hemoglobin 27.7 pg (28.0-32.0); Mean Corpuscular Hgb Conc. 33.1 g/dL (32.0-36.0); Mean Corpuscular Volume 83.8 fL (80.0-100.0); Monocytes # (auto) 0.6 10 ^3/uL (0-1.3); Monocytes % (auto) 11.1 % (0.0-12.0); Neutrophils # (auto) 1.9 10 ^3/uL (1.6-8.6); Neutrophils % (auto) 36.5 % (37.0-80.0); Red Blood Cells 3.27 10^6/uL (4.5-5.90); Red Cell Distribution Width 15.9 % (11.8-14.3); White Blood Cell 5.1 10^3/uL (4.4-10.8)
[2023-05-10 04:28] LABS: INR 1.04 (0.9-1.15); Partial Thromboplastin Time 35.9 SEC (24.5-34.5)
[2023-05-10 04:41] LABS: Calcium 8.6 mg/dL (8.5-10.1); Magnesium 2.2 mg/dL (1.6-2.6); Potassium 3.7 mmol/L (3.5-5.1)
[2023-05-10] MEDS: MEROPENEM 1GM IVPB 100 ML IV SCH ×3 (06:30→21:39)
[2023-05-10] MEDS: FUROSEMIDE 20 MG/2 ML VIAL IV SCH ×2 (06:30→18:11)
[2023-05-10] MEDS: ACCU-CHEK COMFORT CURVE STRIP VI SCH ×4 (06:32→21:34)
[2023-05-10] MEDS: InsuLIN REG 1unit/0.01ml Soln (100units/ml) SC SCH ×4 (06:32→21:34)
[2023-05-10] MEDS: ACETYLCYSTEINE 10 %(100MG/ML) SOL 4ML NEB SCH ×3 (06:55→22:00)
[2023-05-10] MEDS: LEVALBUTEROL HCL 1.25 MG/3 ML NEB NEB SCH ×3 (06:55→22:00)
[2023-05-10] MEDS: ENOXAPARIN SOD 40 MG/0.4 ML SYRINGE SC SCH (08:52)
[2023-05-10] MEDS: PANTOPRAZOLE 40 MG/10 ML VIAL INJ IV SCH (08:52)
[2023-05-10] MEDS: Pro-Stat SF 30ml Vanilla GT SCH (08:53)
[2023-05-10] MEDS: VANCOMYCIN 750mg/250ml 250 ML IV SCH (09:32)
[2023-05-10] MEDS: SANTYL OINTMENT TOP SCH (10:00)
[2023-05-10] MEDS: PROPOFOL 100 ML IV SCH (11:15)
[2023-05-10] MEDS: MIDAZOLAM DRIP 50 mg/50mL 50 ML IV SCH (11:15)
[2023-05-10] MEDS: NOREPINEPHRINE 8 MG/250ML KIT 250 ML IV SCH (11:15)
[2023-05-10] MEDS ORDERED: ROCURONIUM 10MG/ML 10ML VIAL IV ONE (12:19)
[2023-05-10] MEDS ORDERED: fentaNYL CITRATE 100 MCG/2 ML VL ONE (12:19)
[2023-05-10] MEDS: fentaNYL Drip 2500mCg/250mlNS 250 ML IV SCH ×2 (19:00→20:37)
[2023-05-10] MEDS: LORazepam 2MG/ML-1ML VIAL IV PRN (21:40)
[2023-05-11] VITALS (79 sets, daily range): BP systolic 75–117; BP diastolic 42–69
[2023-05-11] MEDS: VANCOMYCIN 750mg/250ml 250 ML IV SCH (02:54)
[2023-05-11 04:11] LABS: Basophils # (auto) 0.1 10 ^3/uL (0-0.2); Basophils % (auto) 1.8 % (0.0-2.0); Eosinophils # (auto) 0.4 10 ^3/uL (0-0.8); Eosinophils % (auto) 7.5 % (0.0-7.0); Hematocrit 26.3 % (41.0-53.0); Hemoglobin 8.5 g/dL (13.5-17.5); Lymphocytes % (auto) 38.2 % (10.0-50.0); Mean Corpuscular Hemoglobin 27.2 pg (28.0-32.0); Mean Corpuscular Hgb Conc. 32.3 g/dL (32.0-36.0); Mean Corpuscular Volume 84.1 fL (80.0-100.0); Monocytes # (auto) 0.5 10 ^3/uL (0-1.3); Monocytes % (auto) 10.4 % (0.0-12.0); Neutrophils # (auto) 2.2 10 ^3/uL (1.6-8.6); Neutrophils % (auto) 42.1 % (37.0-80.0); Nucleated Red Blood Cells % 0.1 %; Red Blood Cells 3.12 10^6/uL (4.5-5.90); Red Cell Distribution Width 15.8 % (11.8-14.3); White Blood Cell 5.2 10^3/uL (4.4-10.8)
[2023-05-11 04:21] LABS: Potassium 3.4 mmol/L (3.5-5.1)
[2023-05-11 04:28] LABS: BUN/Creatinine Ratio 38.8 (10.0-20.0); Calcium 8.6 mg/dL (8.5-10.1)
[2023-05-11] MEDS: MEROPENEM 1GM IVPB 100 ML IV SCH ×2 (06:06→13:35)
[2023-05-11] MEDS: FUROSEMIDE 20 MG/2 ML VIAL IV SCH ×2 (06:07→17:15)
[2023-05-11] MEDS: ACCU-CHEK COMFORT CURVE STRIP VI SCH ×3 (06:34→17:13)
[2023-05-11] MEDS: InsuLIN REG 1unit/0.01ml Soln (100units/ml) SC SCH ×3 (06:35→17:00)
[2023-05-11] MEDS: LEVALBUTEROL HCL 1.25 MG/3 ML NEB NEB SCH ×2 (06:43→14:45)
[2023-05-11] MEDS: ACETYLCYSTEINE 10 %(100MG/ML) SOL 4ML NEB SCH ×2 (06:43→14:45)
[2023-05-11] MEDS: fentaNYL Drip 2500mCg/250mlNS 250 ML IV SCH (08:00)
[2023-05-11] MEDS: ENOXAPARIN SOD 40 MG/0.4 ML SYRINGE SC SCH (09:29)
[2023-05-11] MEDS: PANTOPRAZOLE 40 MG/10 ML VIAL INJ IV SCH (09:29)
[2023-05-11] MEDS: ACETAMINOPHEN 650 mg PER 20.3 mL UD GT PRN ×2 (09:29→17:14)
[2023-05-11] MEDS: Pro-Stat SF 30ml Vanilla GT SCH (09:30)
[2023-05-11] MEDS: SANTYL OINTMENT TOP SCH (09:31)
[2023-05-11] MEDS: NOREPINEPHRINE 8 MG/250ML KIT 250 ML IV SCH (09:32)
[2023-05-11] MEDS: PROPOFOL 100 ML IV SCH (09:32)
[2023-05-11] MEDS: MIDAZOLAM DRIP 50 mg/50mL 50 ML IV SCH (09:32)
== END 2023-05-11 18:44 | disposition short-term general hospital (02) | DRG 4 ==
LOC: EDBD 22:45 → ER 22:45 → TELE 04-17 07:30 → ICU WEST 04-17 14:12
PROVIDERS: ADMIT Nurse Practitioner; ATTEND Internal Medicine
PROC: 5A1955Z Respiratory Ventilation, Greater than 96 Consecutive Hours (ICD-10-PCS; principal; 2023-04-17)
PROC: 0BH17EZ Insertion of Endotracheal Airway into Trachea, Via Natural or Artificial Opening (ICD-10-PCS; 2023-04-17)
PROC: 5A09357 Assistance with Respiratory Ventilation, Less than 24 Consecutive Hours, Continuous Positive Airway Pressure (ICD-10-PCS; 2023-05-03)
PROC: 5A09357 Assistance with Respiratory Ventilation, Less than 24 Consecutive Hours, Continuous Positive Airway Pressure (ICD-10-PCS; 2023-05-04)
PROC: 5A1955Z Respiratory Ventilation, Greater than 96 Consecutive Hours (ICD-10-PCS; 2023-05-05)
PROC: 0B110Z4 Bypass Trachea to Cutaneous, Open Approach (ICD-10-PCS; 2023-05-10)
DX: A41.9 Sepsis, unspecified organism (principal); E43 Unspecified severe protein-calorie malnutrition; G93.41 Metabolic encephalopathy; J69.0 Pneumonitis due to inhalation of food and vomit; R65.21 Severe sepsis with septic shock; J96.02 Acute respiratory failure with hypercapnia; J96.01 Acute respiratory failure with hypoxia; N12 Tubulo-interstitial nephritis, not specified as acute or chronic; G93.1 Anoxic brain damage, not elsewhere classified; E87.29 Other acidosis; J98.11 Atelectasis; Z99.11 Dependence on respirator [ventilator] status; J93.9 Pneumothorax, unspecified; Z68.1 Body mass index [BMI] 19.9 or less, adult; Z66 Do not resuscitate; R13.10 Dysphagia, unspecified; E86.0 Dehydration; E88.09 Other disorders of plasma-protein metabolism, not elsewhere classified; I48.91 Unspecified atrial fibrillation; I25.10 Atherosclerotic heart disease of native coronary artery without angina pectoris; E78.00 Pure hypercholesterolemia, unspecified; Z98.61 Coronary angioplasty status; Z93.1 Gastrostomy status; Z82.49 Family history of ischemic heart disease and other diseases of the circulatory system; Z74.01 Bed confinement status; Z83.3 Family history of diabetes mellitus; F03.C0 Unspecified dementia, severe, without behavioral disturbance, psychotic disturbance, mood disturbance, and anxiety
CPT/HCPCS: 31500; 36415; 36600; 70450; 71045; 71275; 80048; 80053; 80202; 81001; 82746; 82805; 82962; 83036; 83605; 83735; 83880; 84484; 85007; 85025; 85027; 85379; 85610; 85730; 86850; 86900; 86901; 87040; 87070; 87077; 87081; 87086; 87088; 87186; 87205; 87804; 93005; 93306; 93970; 94002; 94003; 94640; 94660; 95819; 97163; 99152; 99153; 99291; C9113; G0378; J0153; J0690; J0696; J1815; J1885; J2001; J2185; J2250; J2543; J3480; J7060; P9047